=== PATIENT | male | born 1950 | race Two or more races ===

== ENCOUNTER → 2017-01-18 | Outpatient (CLI) | payer MEDICARE ==
[~2017-01-18] MED LIST: ALBU17IN INH; ALBU83IN INH; ASPI325T PO; ATEN50TA2 PO; COUM2.5T17 PO; DILT180C74 PO; DULE100A IN; DULE200A IN; ELIQ5TAB PO; FOLI1TAB4 PO; HYDR-3911 PO; KETOROLAC OD; LISI40TAB PO; METO25TA4 PO; METO25TAB PO; PERC5TAB12 PO; PRED1SUS OD; SOTA80TA PO; SOTA80TA2 PO; SPIR1CAP IN; TYLE325T5 PO; VITA500T53 PO
[2017-01-18 20:23] LABS: MEAN CORPUSCULAR HEMOGLOBIN 33.5 pg (27.0-33.0); MEAN CORPUSCULAR HGB CONC 34.1 g/dl (32.0-36.5); MEAN CORPUSCULAR VOLUME 98.3 fl (80.0-96.0); RED CELL DISTRIBUTION WIDTH 12.6 % (11.5-14.5)
[2017-01-18 20:59] LABS: ALBUMIN 3.8 GM/DL (3.2-5.2); ALBUMIN/GLOBULIN RATIO 1.19 (1.00-1.93); ALKALINE PHOSPHATASE 74 U/L (45-117); ALT/SGPT 17 U/L (12-78); ANION GAP 6 MEQ/L (8-16); AST/SGOT 8 U/L (15-37); BILIRUBIN,TOTAL 0.4 MG/DL (0.2-1.0); BLOOD UREA NITROGEN 16 MG/DL (7-18); CALCIUM LEVEL 8.9 MG/DL (8.8-10.2); CARBON DIOXIDE LEVEL 31 MEQ/L (21-32); CHLORIDE LEVEL 103 MEQ/L (98-107); CREATININE FOR GFR 1.01 MG/DL (0.70-1.30); GLOMERULAR FILTRATION RATE > 60.0 (>49); GLUCOSE, FASTING 112 MG/DL (80-110); MAGNESIUM LEVEL 2.1 MG/DL (1.8-2.4); POTASSIUM SERUM 4.4 MEQ/L (3.5-5.1); SODIUM LEVEL 140 MEQ/L (136-145)
== END ==
LOC: M LRY 15:18
PROVIDERS: ATTEND Internal Medicine Cardiovascular Disease
DX: I50.32 Chronic diastolic (congestive) heart failure (principal); I48.0 Paroxysmal atrial fibrillation; I11.0 Hypertensive heart disease with heart failure; I47.2 Ventricular tachycardia

== ENCOUNTER 2017-02-21 14:37 | Emergency (ER) | payer MEDICARE ==
[~2017-02-21] VITALS: Ht 175.3 cm; Wt 90.0 kg
[~2017-02-21 14:37] MED LIST changes: -ASPI325T PO; -ATEN50TA2 PO; -DULE100A IN; -METO25TA4 PO; -SOTA80TA PO; -SOTA80TA2 PO; -VITA500T53 PO
[2017-02-21] MEDS ORDERED: ELIQ5TAB PO ×2 (14:46→15:02)
[2017-02-21] MEDS ORDERED: METO25TA4 PO (15:02)
[2017-02-21] MEDS ORDERED: HYDR-3911 PO (15:02)
[2017-02-21] MEDS ORDERED: VITA500T53 PO (15:02)
[2017-02-21] MEDS ORDERED: ATEN50TA2 PO (15:02)
[2017-02-21] MEDS ORDERED: ASPI325T PO (15:02)
[2017-02-21] MEDS ORDERED: LISI40TAB PO (15:02)
[2017-02-21] MEDS ORDERED: DILT180C74 PO (15:02)
[2017-02-21] MEDS ORDERED: DULE100A IN (15:02)
[2017-02-21] MEDS ORDERED: SOTA80TA2 PO (15:02)
--- NOTE | 2017-02-21 16:19 | REP ---
CT Head without contrast HISTORY: Blurred vision COMPARISON: None An area of decreased attenuation is present in the left thalamus. This represents an old lacunar infarction. Areas of decreased attenuation are present in the periventricular and subcortical white matter. This represents small-vessel ischemic disease. There is no intraparenchymal hemorrhage, acute infarct, mass or midline shift. The ventricular system and cortical sulci as well as subarachnoid space in the posterior fossa are dilated consistent with mild volume loss. There is no extra cerebral collection. There is no fracture. The visualized sinuses are clear. IMPRESSION: 1. 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 2. Small vessel ischemic disease. 3. Mild volume loss. Signed by Tico Arredondo MD 02/21/2017 04:12 P
[2017-02-21 16:22] LABS: BASO % 0.8 % (0.0-1.0); EOS # 0.1 K/mm3 (0.0-0.50); EOS % 1.9 % (0.0-3.0); LARGE UNSTAINED CELL # 0.1 K/mm3 (0.0-0.4); LARGE UNSTAINED CELL % 2.3 % (0.0-4.0); LYMPH # 1.4 K/mm3 (1.5-4.5); LYMPH % 27.3 % (24.0-44.0); MEAN CORPUSCULAR HEMOGLOBIN 33.3 pg (27.0-33.0); MEAN CORPUSCULAR HGB CONC 34.5 g/dl (32.0-36.5); MEAN CORPUSCULAR VOLUME 96.5 fl (80.0-96.0); MONO # 0.4 K/mm3 (0.0-0.8); MONO % 7.7 % (0.0-5.0); NEUTROPHILS # 2.8 K/mm3 (1.8-7.7); PLATELET COUNT, AUTOMATED 142 k/mm3 (150-450); RED CELL DISTRIBUTION WIDTH 12.7 % (11.5-14.5); WHITE BLOOD COUNT 4.7 K/mm3 (4.0-10.0)
[2017-02-21 16:24] LABS: INR 0.94
--- NOTE | 2017-02-21 16:26 | REP ---
Chest one-view HISTORY: Syncope Comparison: 04/08/2016 The lungs are clear. The heart is normal in size. The pulmonary vasculature is normal in appearance. There is an old fracture of the right clavicle. Impression: No acute disease. Signed by Tico Arredondo MD 02/21/2017 04:17 P
[2017-02-21 16:38] LABS: ANION GAP 5 MEQ/L (8-16); BLOOD UREA NITROGEN 10 MG/DL (7-18); CALCIUM LEVEL 9.3 MG/DL (8.8-10.2); CARBON DIOXIDE LEVEL 31 MEQ/L (21-32); CHLORIDE LEVEL 102 MEQ/L (98-107); GLOMERULAR FILTRATION RATE > 60.0 (>49); GLUCOSE, FASTING 101 MG/DL (80-110); POTASSIUM SERUM 4.3 MEQ/L (3.5-5.1); SODIUM LEVEL 138 MEQ/L (136-145)
[2017-02-21 17:55] VITALS: BP 178/92
--- NOTE | 2017-02-23 09:01 | ECGEPIP ---
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
== END 2017-02-21 17:57 | disposition home or self-care (01) ==
LOC: M ED 14:37 → EDBD 14:37 → M ED 17:57
DX: R55 Syncope and collapse (principal); H53.8 Other visual disturbances; R00.1 Bradycardia, unspecified; I10 Essential (primary) hypertension; F44.9 Dissociative and conversion disorder, unspecified; G47.30 Sleep apnea, unspecified; M19.90 Unspecified osteoarthritis, unspecified site; Z79.899 Other long term (current) drug therapy; Z79.82 Long term (current) use of aspirin; Z79.51 Long term (current) use of inhaled steroids; Z79.01 Long term (current) use of anticoagulants

== ENCOUNTER 2017-02-23 19:31 | Emergency (ER) | payer MEDICARE ==
[~2017-02-23] VITALS: Ht 170.2 cm; Wt 90.0 kg
[~2017-02-23 19:31] MED LIST changes: +ASPI325T PO; +ATEN50TA2 PO; +DULE100A IN; +METO25TA4 PO; +SOTA80TA2 PO; +VITA500T53 PO
[2017-02-23] MEDS ORDERED: SOTA80TA PO (20:02)
[2017-02-23] MEDS ORDERED: ACETAMINOPHEN 325 MG TAB PO ONE (22:00)
[2017-02-23 23:00] VITALS: BP 140/75
== END 2017-02-24 00:08 | disposition home or self-care (01) ==
LOC: M ED 19:31
DX: G44.209 Tension-type headache, unspecified, not intractable (principal); H61.23 Impacted cerumen, bilateral; I10 Essential (primary) hypertension; I25.10 Atherosclerotic heart disease of native coronary artery without angina pectoris; H57.8 Other specified disorders of eye and adnexa; Z79.899 Other long term (current) drug therapy; Z79.51 Long term (current) use of inhaled steroids; Z79.82 Long term (current) use of aspirin; Z79.02 Long term (current) use of antithrombotics/antiplatelets

== ENCOUNTER → 2017-02-24 | Outpatient (CLI) | payer MEDICARE ==
[~2017-02-24] MED LIST changes: +SOTA80TA PO
--- NOTE | 2017-02-24 20:00 | REP ---
MRI BRAIN WITHOUT AND WITH CONTRAST: HISTORY: Strabismus. Comparison CT 02/21/2017 Areas of increased signal intensity on T2-weighted images are present in the left thalamus and right centrum semiovale. These represent old lacunar infarctions. Areas of increased signal intensity on T2-weighted images are present in the periventricular and the subcortical white matter. This represents small vessel ischemic disease. There is no intraparenchymal hemorrhage, acute infarct, mass or midline shift. There is no abnormal enhancement. The ventricular system and cortical sulci as well as subarachnoid space in the posterior fossa are dilated consistent with mild volume loss. There is no extracerebral collection. Mucosal thickening is present in the right maxillary sinus. IMPRESSION: 1. Old left thalamic and right centrum semiovale lacunar infarctions. 2. Small vessel ischemic disease. 3. Mild volume loss. Signed by Tico Arredondo MD 02/28/2017 08:16 A
== END ==
LOC: M RAD 13:55
PROVIDERS: ATTEND Ophthalmology
DX: H49.11 Fourth [trochlear] nerve palsy, right eye (principal); I63.8 Other cerebral infarction; G31.9 Degenerative disease of nervous system, unspecified
CPT/HCPCS: 70553; A9576

== ENCOUNTER → 2017-08-02 | Outpatient (REF) | payer MEDICARE | LOC: M SFHCLERA 15:28 | DX: E78.5 Hyperlipidemia, unspecified (principal); Z53.8 Procedure and treatment not carried out for other reasons ==

== ENCOUNTER → 2017-11-18 | Outpatient (REF) | payer MEDICARE ==
[2017-11-18 18:49] LABS: HEMATOCRIT 42.8 % (42.0-52.0); HEMOGLOBIN 14.1 g/dl (13.5-17.5); MEAN CORPUSCULAR HEMOGLOBIN 33.1 pg (27.0-33.0); MEAN CORPUSCULAR HGB CONC 32.9 g/dl (32.0-36.5); MEAN CORPUSCULAR VOLUME 100.5 fl (80.0-96.0); PLATELET COUNT, AUTOMATED 158 10^3/uL (150-450); RED BLOOD COUNT 4.26 10^6/uL (4.30-6.10); RED CELL DISTRIBUTION WIDTH 12.5 % (11.5-14.5); WHITE BLOOD COUNT 5.1 10^3/uL (4.0-10.0)
[2017-11-18 19:01] LABS: ALBUMIN/GLOBULIN RATIO 1.29 (1.00-1.93); ALKALINE PHOSPHATASE 86 U/L (45-117); ALT/SGPT 20 U/L (12-78); ANION GAP 4 MEQ/L (8-16); AST/SGOT 8 U/L (7-37); BILIRUBIN,TOTAL 0.7 MG/DL (0.2-1.0); BLOOD UREA NITROGEN 12 MG/DL (7-18); CALCIUM LEVEL 8.7 MG/DL (8.8-10.2); CARBON DIOXIDE LEVEL 31 MEQ/L (21-32); CHLORIDE LEVEL 106 MEQ/L (98-107); CHOLESTEROL LEVEL 182 MG/DL (<200); CHOLESTEROL RISK RATIO 2.983 (<5); CREATININE FOR GFR 1.12 MG/DL (0.70-1.30); GLOMERULAR FILTRATION RATE > 60.0 (>49); GLUCOSE, FASTING 148 MG/DL (70-100); HDL CHOLESTEROL 61 MG/DL (>40); LDL CHOLESTEROL 94.2 MG/DL (<100); NON-HDL-C 121 MG/DL; POTASSIUM SERUM 4.3 MEQ/L (3.5-5.1); SODIUM LEVEL 141 MEQ/L (136-145); TOTAL PROTEIN 7.1 GM/DL (6.4-8.2); TRIGLYCERIDES LEVEL 134 MG/DL (<150)
== END ==
LOC: M SFHCLERA 11:37
DX: E78.5 Hyperlipidemia, unspecified (principal)
CPT/HCPCS: 80053

== ENCOUNTER → 2017-12-05 | Outpatient (REF) | payer MEDICARE ==
[2017-12-05 20:14] LABS: ESTIMATED AVERAGE GLUCOSE 123 MG/DL (60-110); HEMOGLOBIN A1c 5.9 %
== END ==
LOC: M SFHCLERA 15:21
DX: R73.09 Other abnormal glucose (principal)
CPT/HCPCS: 83036

== ENCOUNTER 2018-07-29 15:27 | Emergency (ER) | payer MEDICARE ==
[~2018-07-29] VITALS: Ht 170.2 cm; Wt 90.0 kg
[~2018-07-29 15:27] MED LIST changes: +FOLI1TAB11 PO; -FOLI1TAB4 PO; +LISI40TA PO; -PRED1SUS OD; +PRED1SUS2 OD
[2018-07-29] MEDS ORDERED: ACETAMINOPHEN 325 MG TAB PO ONE (17:30)
[2018-07-29] MEDS ORDERED: LIDOCAINE 5% (LIDODERM) PATCH TD ONE (17:30)
[2018-07-29] MEDS ORDERED: LIDO5DIS41 TOP (18:13)
[2018-07-29] MEDS ORDERED: ENDO7.5T11 PO (18:13)
[2018-07-29] MEDS ORDERED: oxyCODONE 5MG TAB PO ONE (18:15)
[2018-07-29 18:19] VITALS: BP 122/77
--- NOTE | 2018-07-29 18:39 | REP ---
Clinical: Right hip pain. Technique: Frontal view of the pelvis with neutral and frog lateral views of the right hip. Findings: Left hip replacement. Moderate to significant pelvic, lumbosacral spine, and right hip degenerative changes. No acute fracture dislocation. Impression: Degenerative changes. No obvious acute fracture or dislocation. Electronically Signed by Jorge Luis Finney MD 07/29/2018 06:31 P
== END 2018-07-29 18:23 | disposition home or self-care (01) ==
LOC: M ED 15:27
DX: M54.31 Sciatica, right side (principal); M16.11 Unilateral primary osteoarthritis, right hip; I51.9 Heart disease, unspecified; I10 Essential (primary) hypertension; J44.9 Chronic obstructive pulmonary disease, unspecified; G47.30 Sleep apnea, unspecified; Z96.642 Presence of left artificial hip joint; Z79.01 Long term (current) use of anticoagulants; Z79.899 Other long term (current) drug therapy

== ENCOUNTER → 2018-08-09 | Outpatient (REF) | payer MEDICARE ==
[~2018-08-09] MED LIST changes: +ENDO7.5T11 PO; +LIDO5DIS41 TOP
[2018-08-09 12:22] LABS: BLOOD UREA NITROGEN 15 MG/DL (7-18); CREATININE FOR GFR 0.82 MG/DL (0.70-1.30); GLOMERULAR FILTRATION RATE > 60.0 (>49)
== END ==
LOC: M LABDRAW1 11:46
PROVIDERS: ATTEND Physician Assistant
DX: M25.551 Pain in right hip (principal)

== ENCOUNTER → 2018-12-11 | Outpatient (REF) | payer MEDICARE ==
[~2018-12-11] MED LIST changes: +ASPI-1 PO; -ASPI325T PO; -DILT180C74 PO; +DILT1CAP3 PO; +LISI40TA52 PO; -LISI40TAB PO; +METO1TAB63 PO; -METO25TAB PO; -SOTA80TA PO; +SOTA80TA32 PO; +VITA500T17 PO; -VITA500T53 PO
[2018-12-11 20:35] LABS: ALBUMIN 3.8 GM/DL (3.2-5.2); ALT/SGPT 25 U/L (12-78); BILIRUBIN,TOTAL 0.5 MG/DL (0.2-1.0); BLOOD UREA NITROGEN 10 MG/DL (7-18); CALCIUM LEVEL 8.8 MG/DL (8.8-10.2); CARBON DIOXIDE LEVEL 32 MEQ/L (21-32); CHLORIDE LEVEL 104 MEQ/L (98-107); CHOLESTEROL LEVEL 170 MG/DL (<200); CHOLESTEROL RISK RATIO 2.931 (<5); CREATININE FOR GFR 1.13 MG/DL (0.70-1.30); GLOMERULAR FILTRATION RATE > 60.0 (>49); GLUCOSE, FASTING 101 MG/DL (70-100); HDL CHOLESTEROL 58 MG/DL (>40); LDL CHOLESTEROL 59 MG/DL (<100); NON-HDL-C 112 MG/DL; POTASSIUM SERUM 4.2 MEQ/L (3.5-5.1); SODIUM LEVEL 141 MEQ/L (136-145); TOTAL PROTEIN 7.1 GM/DL (6.4-8.2); TRIGLYCERIDES LEVEL 267 MG/DL (<150)
[2018-12-11 20:42] LABS: HEMOGLOBIN A1c 6.1 %
[2018-12-11 20:48] LABS: BASO # 0.1 10^3/uL (0.0-0.2); EOS # 0.2 10^3/uL (0.0-0.50); EOS % 2.6 % (0.0-3.0); HEMATOCRIT 44.2 % (42.0-52.0); HEMOGLOBIN 14.6 g/dl (13.5-17.5); LYMPH # 1.7 10^3/uL (1.5-4.5); LYMPH % 28.1 % (24.0-44.0); MEAN CORPUSCULAR HEMOGLOBIN 34.2 pg (27.0-33.0); MEAN CORPUSCULAR VOLUME 103.5 fl (80.0-96.0); MONO # 0.5 10^3/uL (0.0-0.8); MONO % 8.7 % (0.0-5.0); NEUTROPHILS # 3.6 10^3/uL (1.8-7.7); NEUTROPHILS % 59.3 % (36.0-66.0); PLATELET COUNT, AUTOMATED 134 10^3/uL (150-450); RED BLOOD COUNT 4.27 10^6/uL (4.30-6.10); WHITE BLOOD COUNT 6.1 10^3/uL (4.0-10.0)
== END ==
LOC: M SFHCLERA 14:56
PROVIDERS: ATTEND Family Medicine
DX: E78.5 Hyperlipidemia, unspecified (principal); I48.91 Unspecified atrial fibrillation; I10 Essential (primary) hypertension

== ENCOUNTER → 2018-12-22 | Outpatient (CLI) | payer MEDICARE ==
[2018-12-22 19:26] LABS: TOTAL PROTEIN 6.9 GM/DL (6.4-8.2)
[2018-12-24 10:14] LABS: FOLATE 5.4 NG/ML; VITAMIN B12 LEVEL 282 PG/ML
[2018-12-25 14:42] LABS: ALBUMIN % 60.8 % (55.8-66.1); ALPHA-1-GLOBULIN % 4.3 % (2.9-4.9); ALPHA-2-GLOBULINS 0.64 GM/DL (0.42-0.99); ALPHA-2-GLOBULINS % 9.3 % (7.1-11.8); BETA-1-GLOBULINS 0.43 GM/DL (0.28-0.60); BETA-1-GLOBULINS % 6.3 % (4.7-7.2); BETA-2-GLOBULINS 0.34 GM/DL (0.19-0.55); BETA-2-GLOBULINS % 4.9 % (3.2-6.5); GAMMA GLOBULIN % 14.4 % (11.1-18.8); GAMMA GLOBULINS 0.99 GM/DL (0.65-1.58)
== END ==
LOC: M LRY 09:33
PROVIDERS: ATTEND Family Medicine
DX: D75.89 Other specified diseases of blood and blood-forming organs (principal)

== ENCOUNTER → 2019-04-05 | Outpatient (CLI) | payer MEDICARE ==
[2019-04-05 12:44] LABS: ALBUMIN 3.8 GM/DL (3.2-5.2); ALT/SGPT 24 U/L (12-78); BILIRUBIN,TOTAL 0.7 MG/DL (0.2-1.0); BLOOD UREA NITROGEN 13 MG/DL (7-18); CALCIUM LEVEL 8.9 MG/DL (8.8-10.2); CARBON DIOXIDE LEVEL 29 MEQ/L (21-32); CHLORIDE LEVEL 102 MEQ/L (98-107); CHOLESTEROL LEVEL 207 MG/DL (<200); CHOLESTEROL RISK RATIO 4.312 (<5); CREATININE FOR GFR 0.92 MG/DL (0.70-1.30); GLOMERULAR FILTRATION RATE > 60.0 (>49); GLUCOSE, FASTING 105 MG/DL (70-100); HDL CHOLESTEROL 48 MG/DL (>40); LDL CHOLESTEROL 135 MG/DL (<100); NON-HDL-C 159 MG/DL; POTASSIUM SERUM 4.3 MEQ/L (3.5-5.1); SODIUM LEVEL 137 MEQ/L (136-145); TOTAL PROTEIN 6.6 GM/DL (6.4-8.2); TRIGLYCERIDES LEVEL 118 MG/DL (<150)
== END ==
LOC: M LRY 08:39
PROVIDERS: ATTEND Internal Medicine Cardiovascular Disease
DX: I48.91 Unspecified atrial fibrillation (principal); I10 Essential (primary) hypertension; E78.2 Mixed hyperlipidemia

== ENCOUNTER → 2020-05-28 | Outpatient (REF) | payer MEDICARE ==
[2020-05-28 19:30] LABS: ALBUMIN 3.8 GM/DL (3.2-5.2); ALT/SGPT 25 U/L (12-78); BILIRUBIN,TOTAL 0.4 MG/DL (0.2-1.0); BLOOD UREA NITROGEN 11 MG/DL (7-18); CALCIUM LEVEL 8.7 MG/DL (8.8-10.2); CARBON DIOXIDE LEVEL 29 MEQ/L (21-32); CHLORIDE LEVEL 103 MEQ/L (98-107); CHOLESTEROL LEVEL 168 MG/DL (<200); CREATININE FOR GFR 0.88 MG/DL (0.70-1.30); GLOMERULAR FILTRATION RATE > 60.0 (>49); GLUCOSE, FASTING 116 MG/DL (70-100); HDL CHOLESTEROL 52 MG/DL (>40); LDL CHOLESTEROL 95 MG/DL (<100); MAGNESIUM LEVEL 2.2 MG/DL (1.8-2.4); NON-HDL-C 116 MG/DL; NT-PRO BNP 201 PG/ML (<125); POTASSIUM SERUM 5.4 MEQ/L (3.5-5.1); SODIUM LEVEL 136 MEQ/L (136-145); TRIGLYCERIDES LEVEL 106 MG/DL (<150)
[2020-05-30 04:09] LABS: LDL DIRECT 96 mg/dL (0-99)
== END ==
LOC: M LAB REF 16:47
PROVIDERS: ATTEND Internal Medicine Cardiovascular Disease
DX: E78.2 Mixed hyperlipidemia (principal); I50.32 Chronic diastolic (congestive) heart failure; I47.2 Ventricular tachycardia

== ENCOUNTER 2020-12-01 07:50 | Emergency (ER) | payer MEDICARE ==
[~2020-12-01 07:50] MED LIST changes: -LISI40TA PO; +LISI40TA4 PO
[2020-12-01] MEDS ORDERED: NS 1,000 ML IV ONE (08:20)
[2020-12-01 09:08] LABS: BASO # 0.1 10^3/uL (0.0-0.2); BASO % 1.2 % (0.0-1.0); EOS # 0.1 10^3/uL (0.0-0.5); EOS % 2.8 % (0.0-3.0); HEMATOCRIT 39.8 % (42.0-52.0); LYMPH # 1.6 10^3/uL (1.5-5.0); LYMPH % 31.8 % (24.0-44.0); MEAN CORPUSCULAR HEMOGLOBIN 32.7 pg (27.0-33.0); MEAN CORPUSCULAR HGB CONC 32.7 g/dl (32.0-36.5); MONO # 0.4 10^3/uL (0.0-0.8); MONO % 7.1 % (2.0-8.0); NEUTROPHILS # 2.9 10^3/uL (1.5-8.5); NEUTROPHILS % 56.9 % (36.0-66.0); PLATELET COUNT, AUTOMATED 149 10^3/uL (150-450); RED BLOOD COUNT 3.98 10^6/uL (4.30-6.10); WHITE BLOOD COUNT 5.1 10^3/uL (4.0-10.0)
[2020-12-01 09:25] LABS: INR 0.96
[2020-12-01 09:26] LABS: PARTIAL THROMBOPLASTIN TIME 28.8 SECONDS (24.2-38.5)
[2020-12-01 09:30] VITALS: BP 146/78
[2020-12-01 10:04] LABS: ALBUMIN 3.3 GM/DL (3.2-5.2); BILIRUBIN,DIRECT 0.1 MG/DL (0.0-0.2); BILIRUBIN,TOTAL 0.4 MG/DL (0.2-1.0); TOTAL PROTEIN 6.4 GM/DL (6.4-8.2)
[2020-12-01 10:14] LABS: CK-MB VALUE MASS < 1.0 NG/ML (<3.6); CPK CREATINE PHOSPHOKINASE 58 U/L (39-308); MB/CK RELATIVE INDEX 1.72 (< OR =4); TROPONIN I < 0.02 NG/ML (< 0.10)
--- NOTE | 2020-12-01 17:33 | ECGEPIP ---
[facility] - ED Test Date: 2020-12-01 Pat Name: ULCIO RICHARDSON Department: Room: - Gender: Male Layer Out: : 1950 Requested By: CAYETANO Krause PA-C Order Number: [id number] Reading MD: Fannie Antunez Measurements Intervals [place] Rate: 68 P: 69 TN: 178 QRS: 24 QRSD: 66 T: 43 QT: 422 QTc: 448 Interpretive Statements Normal sinus rhythm nonspecific st elevation - clinical correlation ischemia, pericarditis, early r repolarization Electronically Signed on 12-01-2020 17:33:03 EDT by Fannie Antunez
== END 2020-12-01 10:33 | disposition home or self-care (01) ==
LOC: M ED 07:50 → EDBD 07:50 → M ED 10:33
DX: R04.0 Epistaxis (principal); I10 Essential (primary) hypertension; G47.33 Obstructive sleep apnea (adult) (pediatric); Z79.01 Long term (current) use of anticoagulants; Z79.899 Other long term (current) drug therapy

== ENCOUNTER → 2020-12-03 | Outpatient (CLI) | payer MEDICARE ==
[2020-12-03 10:45] LABS: HEMATOCRIT 35.6 % (42.0-52.0); HEMOGLOBIN 11.6 g/dl (13.5-17.5); MEAN CORPUSCULAR HEMOGLOBIN 32.7 pg (27.0-33.0); MEAN CORPUSCULAR HGB CONC 32.6 g/dl (32.0-36.5); MEAN CORPUSCULAR VOLUME 100.3 fl (80.0-96.0); PLATELET COUNT, AUTOMATED 124 10^3/uL (150-450); RED BLOOD COUNT 3.55 10^6/uL (4.30-6.10); WHITE BLOOD COUNT 6.7 10^3/uL (4.0-10.0)
[2020-12-03 11:18] LABS: ALBUMIN 3.5 GM/DL (3.2-5.2); ALT/SGPT 13 U/L (12-78); BILIRUBIN,TOTAL 0.6 MG/DL (0.2-1.0); BLOOD UREA NITROGEN 13 MG/DL (7-18); CALCIUM LEVEL 8.4 MG/DL (8.8-10.2); CARBON DIOXIDE LEVEL 32 MEQ/L (21-32); CHLORIDE LEVEL 102 MEQ/L (98-107); CHOLESTEROL LEVEL 114 MG/DL (<200); CREATININE FOR GFR 0.73 MG/DL (0.70-1.30); GLOMERULAR FILTRATION RATE > 60.0 (>49); GLUCOSE, FASTING 110 MG/DL (70-100); HDL CHOLESTEROL 53 MG/DL (>40); LDL CHOLESTEROL 37 MG/DL (<100); MAGNESIUM LEVEL 2.3 MG/DL (1.8-2.4); NON-HDL-C 61 MG/DL; NT-PRO BNP 379 PG/ML (<125); SODIUM LEVEL 138 MEQ/L (136-145); TOTAL PROTEIN 6.4 GM/DL (6.4-8.2); TRIGLYCERIDES LEVEL 122 MG/DL (<150)
== END ==
LOC: M CARPUL 09:12
PROVIDERS: ATTEND Internal Medicine Cardiovascular Disease
DX: I50.32 Chronic diastolic (congestive) heart failure (principal)

== ENCOUNTER → 2021-01-25 | Outpatient (CLI) | payer MEDICARE ==
--- NOTE | 2021-01-25 10:35 | REP ---
INDICATION: PREOP- LABS AND EKG FIRST. COMPARISON: PA chest, 02/21/2017. TECHNIQUE: Upright PA and lateral images of the chest were obtained. FINDINGS: There is upper lobe predominant emphysema. There is no lobar consolidation or pleural effusion. The heart borders and mediastinum are normal. The upper abdominal bowel gas pattern is normal. There is a healed fracture of the right clavicle. There are no acute bony abnormalities. IMPRESSION: Emphysema. No evidence of acute cardiopulmonary pathology. No significant change. <Electronically signed by Charles Shannon > 01/25/21 [id number]
--- NOTE | 2021-01-25 10:47 | ECGEPIP ---
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
[2021-01-25 10:52] LABS: HEMATOCRIT 42.2 % (42.0-52.0); HEMOGLOBIN 13.7 g/dl (13.5-17.5); MEAN CORPUSCULAR HEMOGLOBIN 32.8 pg (27.0-33.0); MEAN CORPUSCULAR HGB CONC 32.5 g/dl (32.0-36.5); PLATELET COUNT, AUTOMATED 133 10^3/uL (150-450); RED BLOOD COUNT 4.18 10^6/uL (4.30-6.10); WHITE BLOOD COUNT 6.5 10^3/uL (4.0-10.0)
[2021-01-25 11:13] LABS: INR 1.16; PROTHROMBIN TIME 15.2 SECONDS (12.7-14.5)
[2021-01-25 11:23] LABS: ALBUMIN 3.8 GM/DL (3.2-5.2); ALT/SGPT 19 U/L (12-78); BILIRUBIN,TOTAL 0.6 MG/DL (0.2-1.0); BLOOD UREA NITROGEN 10 MG/DL (7-18); CALCIUM LEVEL 8.9 MG/DL (8.8-10.2); CARBON DIOXIDE LEVEL 35 MEQ/L (21-32); CHLORIDE LEVEL 101 MEQ/L (98-107); CREATININE FOR GFR 0.93 MG/DL (0.70-1.30); GLOMERULAR FILTRATION RATE > 60.0 (>49); GLUCOSE, FASTING 110 MG/DL (70-100); POTASSIUM SERUM 4.8 MEQ/L (3.5-5.1); SODIUM LEVEL 136 MEQ/L (136-145); TOTAL PROTEIN 6.9 GM/DL (6.4-8.2)
[2021-01-25 12:02] LABS: ERYTHROCYTE SEDIMENTATION RATE 17 mm/hr (0-20)
== END ==
LOC: M LAB 09:48
PROVIDERS: ATTEND Orthopaedic Surgery
DX: Z01.818 Encounter for other preprocedural examination (principal); I51.9 Heart disease, unspecified; J43.9 Emphysema, unspecified; M16.11 Unilateral primary osteoarthritis, right hip

== ENCOUNTER → 2021-02-16 | Outpatient (REF) | payer MEDICARE ==
[2021-02-16 14:52] LABS: HEMOGLOBIN 11.6 g/dl (13.5-17.5); MEAN CORPUSCULAR HGB CONC 32.2 g/dl (32.0-36.5); MEAN CORPUSCULAR VOLUME 102.3 fl (80.0-96.0); PLATELET COUNT, AUTOMATED 237 10^3/uL (150-450); RED BLOOD COUNT 3.52 10^6/uL (4.30-6.10); WHITE BLOOD COUNT 6.2 10^3/uL (4.0-10.0)
[2021-02-16 15:11] LABS: BLOOD UREA NITROGEN 14 MG/DL (7-18); CALCIUM LEVEL 8.6 MG/DL (8.8-10.2); CARBON DIOXIDE LEVEL 31 MEQ/L (21-32); CHLORIDE LEVEL 100 MEQ/L (98-107); CREATININE FOR GFR 0.84 MG/DL (0.70-1.30); GLOMERULAR FILTRATION RATE > 60.0 (>49); GLUCOSE, FASTING 105 MG/DL (70-100); MAGNESIUM LEVEL 2.4 MG/DL (1.8-2.4); POTASSIUM SERUM 4.3 MEQ/L (3.5-5.1); SODIUM LEVEL 137 MEQ/L (136-145)
== END ==
LOC: M LAB REF 14:22
PROVIDERS: ATTEND Internal Medicine Cardiovascular Disease
DX: I47.2 Ventricular tachycardia (principal); I50.32 Chronic diastolic (congestive) heart failure; I48.0 Paroxysmal atrial fibrillation

== ENCOUNTER 2021-03-17 14:26 | Emergency (ER) | payer MEDICARE ==
[~2021-03-17] VITALS: Ht 170.2 cm; Wt 93.6 kg
[2021-03-17 14:49] LABS: BASO # 0.1 10^3/uL (0.0-0.2); BASO % 0.9 % (0.0-1.0); EOS # 0.1 10^3/uL (0.0-0.5); EOS % 1.6 % (0.0-3.0); HEMATOCRIT 38.2 % (42.0-52.0); HEMOGLOBIN 12.6 g/dl (13.5-17.5); LYMPH # 1.8 10^3/uL (1.5-5.0); MEAN CORPUSCULAR HEMOGLOBIN 32.6 pg (27.0-33.0); MONO # 0.5 10^3/uL (0.0-0.8); MONO % 7.3 % (2.0-8.0); NEUTROPHILS # 4.4 10^3/uL (1.5-8.5); NEUTROPHILS % 63.8 % (36.0-66.0); PLATELET COUNT, AUTOMATED 139 10^3/uL (150-450); RED BLOOD COUNT 3.86 10^6/uL (4.30-6.10); WHITE BLOOD COUNT 6.9 10^3/uL (4.0-10.0)
--- NOTE | 2021-03-17 14:52 | REP ---
INDICATION: CVA - Nursing interventions must not delay CT. COMPARISON: Comparison head CT study February 21, 2017. TECHNIQUE: Helical scanning is acquired. 5 mm axial images were reformatted. Coronal MPR images were generated. FINDINGS: Preliminary digital facing machine operator radiograph is unremarkable. On bone window settings, the bony calvarium is intact. Visualized paranasal sinuses are clear except for a small quantity of fluid in the posterior aspect of the right maxillary sinus. Vascular calcification is observed in the carotid siphons bilaterally. On soft tissue window settings, there is generalized volume loss. There is a small old lacunar infarct in the periventricular white matter of the right frontal lobe and another old lacunar infarct is seen in the left basal ganglia. These are unchanged from the February 21, 2017 study. No evidence of intracranial hemorrhage. No extra-axial fluid collection is seen. No mass or midline shift is observed. small vessel atherosclerotic changes are seen. IMPRESSION: Diffuse atrophy and vascular calcification. Old lacunar infarct. Small vessel atherosclerotic changes. Findings unchanged from the comparison study of February 21, 2017. <Electronically signed by Solitario Jolly > 03/17/21 [id number]
--- NOTE | 2021-03-17 14:54 | REP ---
INDICATION: CVA. COMPARISON: Comparison chest x-ray January 25, 2021. TECHNIQUE: Portable upright AP chest radiograph. FINDINGS: There is a small zone linear density in the left base consistent with platelike atelectasis. A loop recorder is again visible to the left of midline. Monitoring electrodes are seen. The heart is not felt to be enlarged. The pulmonary vasculature is not increased. There is an old healed fracture of the right clavicle. AC joint osteoarthritis is noted bilaterally. There are degenerative changes in the thoracic spine. The pleural angles are sharp. IMPRESSION: Mild platelike atelectasis left base. Loop recorder visible. Otherwise no acute disease. <Electronically signed by Solitario Jolly > 03/17/21 [id number]
[2021-03-17] MEDS ORDERED: XARE20TA PO (15:09)
[2021-03-17 15:19] LABS: CK-MB VALUE MASS < 1.0 NG/ML (<3.6); CPK CREATINE PHOSPHOKINASE 49 U/L (39-308); MB/CK RELATIVE INDEX 2.04 (< OR =4); TROPONIN I < 0.02 NG/ML (< 0.10)
[2021-03-17 16:45] VITALS: BP 146/82
--- NOTE | 2021-03-18 23:58 | ECGEPIP ---
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
== END 2021-03-17 17:00 | disposition home or self-care (01) ==
LOC: M ED 14:26 → EDBD 14:26 → M ED 17:00
DX: R20.2 Paresthesia of skin (principal); I48.91 Unspecified atrial fibrillation; I10 Essential (primary) hypertension; J45.909 Unspecified asthma, uncomplicated

== ENCOUNTER 2021-03-28 19:58 | Inpatient (IN) | payer MEDICARE ==
[~2021-03-28] VITALS: Ht 170.2 cm; Wt 88.7 kg
[~2021-03-28 19:58] MED LIST changes: +XARE20TA PO
--- NOTE | 2021-03-28 20:40 | REPVR ---
PROCEDURE INFORMATION: Exam: CT Head Without Contrast Exam date and time: 03/28/2021 8:25 PM Age: 70 years old Clinical indication: Speech disturbance; Slurred speech; Additional info: Slurred speech, trouble swallowing TECHNIQUE: Imaging protocol: Computed tomography of the head without contrast. Radiation optimization: All CT scans at this facility use at least one of these dose optimization techniques: automated exposure control; mA and/or kV adjustment per patient size (includes targeted exams where dose is matched to clinical indication); or iterative reconstruction. Other technique: STROKE PROTOCOL was implemented. COMPARISON: CT Head without contrast 03/17/2021 2:33 PM FINDINGS: Brain: Moderate to severe volume loss. Decreased attenuation of the supratentorial white matter is likely secondary to chronic microvascular ischemia. No acute intracranial hemorrhage, midline shift or intracranial mass effect. Cerebral ventricles: No hydrocephalus. Paranasal sinuses: Moderate right maxillary sinus disease. Mastoid air cells: Visualized mastoid air cells are well aerated. Bones/joints: Unremarkable. No acute fracture. Soft tissues: Unremarkable. IMPRESSION: No acute intracranial abnormality. ASSESSMENT: ASPECTS ([place] Stroke Program Early CT Score) is 10. Electronically signed by: Kirt London On 03/28/2021 20:39:41 PM
[2021-03-28 20:51] LABS: BASO # 0.1 10^3/uL (0.0-0.2); BASO % 0.9 % (0.0-1.0); EOS # 0.1 10^3/uL (0.0-0.5); HEMATOCRIT 41.2 % (42.0-52.0); HEMOGLOBIN 13.8 g/dl (13.5-17.5); LYMPH # 1.9 10^3/uL (1.5-5.0); LYMPH % 30.3 % (24.0-44.0); MEAN CORPUSCULAR HGB CONC 33.5 g/dl (32.0-36.5); MEAN CORPUSCULAR VOLUME 98.6 fl (80.0-96.0); MONO # 0.5 10^3/uL (0.0-0.8); NEUTROPHILS # 3.7 10^3/uL (1.5-8.5); NEUTROPHILS % 58.5 % (36.0-66.0); PLATELET COUNT, AUTOMATED 122 10^3/uL (150-450); RED BLOOD COUNT 4.18 10^6/uL (4.30-6.10); WHITE BLOOD COUNT 6.4 10^3/uL (4.0-10.0)
--- NOTE | 2021-03-28 20:54 | ECGEPIP ---
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
[2021-03-28 20:57] LABS: INR 1.29; PROTHROMBIN TIME 16.6 SECONDS (12.7-14.5)
--- NOTE | 2021-03-28 21:12 | REP ---
INDICATION: CVA. COMPARISON: March 17, 2021. TECHNIQUE: Portable upright AP chest radiograph. FINDINGS: The lungs are well inflated and free of infiltrate. Pleural angles are sharp. Heart size is normal. Pulmonary vasculature is not increased. There is minimal platelike atelectasis at the left base unchanged. An old healed right clavicle fracture is noted. IMPRESSION: No active disease. <Electronically signed by Solitario Jolly > 03/28/21 [id number]
[2021-03-28] MEDS ORDERED: hydrALAZINE 20MG/ML 1ML VIAL (J0360 PER 20MG) IV STA (21:15)
[2021-03-28 21:17] LABS: BLOOD UREA NITROGEN 15 MG/DL (7-18); CALCIUM LEVEL 8.9 MG/DL (8.8-10.2); CARBON DIOXIDE LEVEL 32 MEQ/L (21-32); CHLORIDE LEVEL 100 MEQ/L (98-107); CK-MB VALUE MASS < 1.0 NG/ML (<3.6); CPK CREATINE PHOSPHOKINASE 59 U/L (39-308); CREATININE FOR GFR 0.84 MG/DL (0.70-1.30); GLOMERULAR FILTRATION RATE > 60.0 (>49); GLUCOSE, FASTING 107 MG/DL (70-100); MB/CK RELATIVE INDEX 1.69 (< OR =4); POTASSIUM SERUM 4.5 MEQ/L (3.5-5.1); SODIUM LEVEL 137 MEQ/L (136-145); TROPONIN I < 0.02 NG/ML (< 0.10)
[2021-03-28] MEDS ORDERED: ROSU20TA5 PO (22:59)
[2021-03-28] MEDS ORDERED: HOME MED LIST COMPLETE! XX SCH (23:00)
[2021-03-28 23:38] LABS: RSV AMPLIFICATION NEGATIVE (NEGATIVE)
[2021-03-28] MEDS ORDERED: ASPIRIN 325 MG TAB PO ONE (23:45)
[2021-03-28] MEDS ORDERED: ASPIRIN 81MG ENTERIC TABLET PO ONE (23:45)
[2021-03-29] VITALS (12 sets, daily range): BP systolic 142–200; BP diastolic 72–98; O2SAT 93
[2021-03-29] MEDS ORDERED: hydrALAZINE 20MG/ML 1ML VIAL (J0360 PER 20MG) IV STA (02:20)
--- NOTE | 2021-03-29 02:41 | REPVR ---
PROCEDURE INFORMATION: Exam: MRA Neck Without Contrast Exam date and time: 03/29/2021 2:00 AM Age: 70 years old Clinical indication: Patient HX: PT states 2 weeks ago felt numbness on both sides of face along with constant feeling of having to clear throat, ; additional info: R/O CVA TECHNIQUE: Imaging protocol: Magnetic resonance angiography of the neck without contrast. COMPARISON: MRA BRAIN WITHOUT 03/29/2021 12:51 AM FINDINGS: Right common carotid artery: No stenosis. No dissection or occlusion. Right internal carotid artery: No stenosis of the extracranial segment. No dissection or occlusion. Right external carotid artery: No stenosis. No dissection or occlusion of the origin. Right vertebral artery: Right vertebral artery is dominant. Left common carotid artery: No stenosis. No dissection or occlusion. Left internal carotid artery: No stenosis of the extracranial segment. No dissection or occlusion. Left external carotid artery: No stenosis. No dissection or occlusion of the origin. Left vertebral artery: No stenosis. No dissection or occlusion. IMPRESSION: No hemodynamically significant stenosis. REFERENCES: NASCET CRITERIA. The degree of internal carotid artery stenosis is based on NASCET criteria. Normal is no stenosis. Mild is less than 50% stenosis. Moderate is 50-69% stenosis. Severe is 70% to 99% stenosis. Total occlusion is no detectable patent lumen. Electronically signed by: Kirt London On 03/29/2021 02:40:54 AM
--- NOTE | 2021-03-29 02:50 | REPVR ---
PROCEDURE INFORMATION: Exam: MR Head Without Contrast Exam date and time: 03/29/2021 2:00 AM Age: 70 years old Clinical indication: Numbness / parasthesia; Bilateral; Patient HX: PT states 2 weeks ago felt numbness on both sides of face along with constant feeling of having to clear throat; Additional info: R/O CVA TECHNIQUE: Imaging protocol: MR of the head without contrast. COMPARISON: CT Head without contrast 03/28/2021 8:17 PM FINDINGS: There is patient motion. Age-related volume loss. Major vascular flow voids at the skull base are preserved. No extra-axial fluid collection. No hydrocephalus. No midline shift or intracranial mass effect. Nonspecific white matter gliosis, probable chronic microvascular ischemia. There are chronic lacunar infarcts involving the bilateral thalami and the right centrum semiovale. There are a few small foci of susceptibility likely secondary to remote microhemorrhage. No diffusion restriction. Moderate right maxillary sinus disease. No mastoid effusion. IMPRESSION: No acute intracranial abnormality. Electronically signed by: Kirt London On 03/29/2021 02:49:32 AM
--- NOTE | 2021-03-29 03:23 | REPVR ---
PROCEDURE INFORMATION: Exam: MRA Head Without Contrast; Arteriography Exam date and time: 03/29/2021 12:51 AM Age: 70 years old Clinical indication: Patient HX: PT states 2 weeks ago felt numbness on both sides of face along with constant feeling of having to clear throat; Additional info: R/O CVA TECHNIQUE: Imaging protocol: Magnetic resonance angiography head without contrast. Exam focused on the arteries. COMPARISON: CT Head without contrast 03/28/2021 8:17 PM FINDINGS: ANTERIOR CIRCULATION: Right internal carotid artery: Intracranial segment is patent with no significant stenosis. No aneurysm. Right middle cerebral artery: No occlusion or significant stenosis. No aneurysm. Right anterior cerebral artery: No occlusion or significant stenosis. No aneurysm. Left internal carotid artery: Intracranial segment is patent with no significant stenosis. No aneurysm. Left middle cerebral artery: No occlusion or significant stenosis. No aneurysm. Left anterior cerebral artery: No occlusion or significant stenosis. No aneurysm. POSTERIOR CIRCULATION: Right vertebral artery: Right vertebral artery is dominant. Left vertebral artery: No occlusion or significant stenosis. No aneurysm. Basilar artery: No occlusion or significant stenosis. No aneurysm. Right posterior cerebral artery: No occlusion or significant stenosis. No aneurysm. Left posterior cerebral artery: No occlusion or significant stenosis. No aneurysm. IMPRESSION: No hemodynamically significant stenosis or large vessel occlusion. Electronically signed by: Kirt London On 03/29/2021 03:22:55 AM
[2021-03-29] MEDS ORDERED: methylPREDNISolone 125MG 2ML VIAL IV ONE (04:05)
[2021-03-29] MEDS: EPINEPHrine INJ 1 MG/ML 1ML AMP IM STA ×2 (04:05→06:03)
[2021-03-29] MEDS ORDERED: HEPARIN SOD (PORCINE) 5000UNITS/ML 1ML VIAL/SYRINGE SC SCH (04:10)
[2021-03-29] MEDS ORDERED: MAALOX 30 ML SUSP *UDC PO PRN (04:10)
[2021-03-29] MEDS ORDERED: MOM 30ML SUSPENSION UDC PO PRN (04:10)
[2021-03-29] MEDS ORDERED: ACETAMINOPHEN TAB 650MG DOSE (2X325MG) PO PRN (04:10)
[2021-03-29] MEDS ORDERED: ISOVUE-370 76% 100ML VIAL As Ordered ONE (04:19)
[2021-03-29] MEDS ORDERED: LABETALOL 100MG/20ML VIAL IV PRN (04:20)
[2021-03-29] MEDS: NS 1,000 ML IV SCH ×3 (04:20→21:12)
--- NOTE | 2021-03-29 04:38 | HPEPDOC ---
[facility] Medical History & Physical Date of Admission Mar 29, 2021 Date of Service: Mar 29, 2021 History and Physical CHIEF COMPLAINT: Slurred speech, trouble swallowing HISTORY OF PRESENT ILLNESS: 70-year-old male with a past medical history of hypertension, atrial fibrillation (on eliquis) status post cardiac ablation, osteoarthritis of the right hip, presented to the ER complaining of trouble swallowing, tongue and lip swelling, and slurred speech with weakness of the L side of face. He has had these symptoms for the past several weeks, with acute exacerbation in the past 24 hours. Upon presentation the patient was out of TPA window. Initial CT head without contrast showed no acute intracranial normality. Of note patient's blood pressure was elevated to 220 systolic. He was given 10 mg of IV hydralazine blood pressure decreased to 150 systolic. Patient was thought to have symptoms related to hypertensive emergency versus acute CVA. MRI?MRA brain and MRA carotids show no abnormalities. Given concern about worsening swelling and slurred speech with tongue swelling, patient was given 125 mg solumedrol and 0.3 mg epinephrine IM for possibility of anaphylaxis to an unknown substance. CT neck w iv contrast was ordered to evaluate airway. PAST MEDICAL HISTORY: HTN Afib on eliquis (hx of cardiac ablation) OAR R hip Restricted airway? PAST SURGICAL HISTORY: Bilateral cataract surgery L hip arthroplasty Cardiac ablation Loop recorder R hip total replacement SOCIAL HISTORY: Patient denies smoking Patient denies etoh use Patient denies illicit drug use ALLERGIES: Please see below. REVIEW OF SYSTEMS: 10 point ROS conducted, relevant findings are noted in HPI HOME MEDICATIONS: Please see below. PHYSICAL EXAMINATION: VITAL SIGNS: please see below General: NAD, comfortable HEENT: PERRLA, EOMI, sclerae clear, no obvious tongue swelling, no tonsillar adenopathy, open posterior airway Neck: supple, normal ROM, no JVD. Respiratory: lungs CTAB, no wheeze, no rales, no crackles CVS: RRR, normal S1, S2, no murmurs Abdo: soft, no masses, no hepatosplenomegaly, BS+, no rebound tenderness Extremities: no edema, pulses 2+ MSK: no joint deformities, normal ROM Neuro: no focal neuro deficits, moving all 4 extremities, CN2-12 intact. Strength 5/5 in all 4 extremities. No nystagmus. Psych: calm, cooperative, AAO x 3 LABORATORY DATA: See below. IMAGING: MRA brain wo contrast (03/28/21): IMPRESSION: No hemodynamically significant stenosis or large vessel occlusion. MRI brain wo contrast (03/28/21): IMPRESSION: No acute intracranial abnormality. MRA carotid arteries wo contrast (03/28/21): IMPRESSION: No hemodynamically significant stenosis. CT head wo contrast (03/28/21): IMPRESSION: No acute intracranial abnormality. CXR (03/28/21): IMPRESSION: No active disease MICROBIOLOGY: Please see below. ASSESSMENT: : 70-year-old male with a past medical history of hypertension, atrial fibrillation (on eliquis) status post cardiac ablation, osteoarthritis of the right hip, presented to the ER complaining of trouble swallowing numbness of the tongue blurred vision and numbness in the left face. Symptoms related to HTN emergency vs acute CVA. CT head negative. Ordered MRI brain, MRA brain and carotid arteries. PLAN: #CVA symptoms 2/2 HTN emergency vs CVA: CT head negative. MRI/MRA brain, MRA carotids Given 81 mg ASA. C/w rosuvastatin. No aggressive BP lowering. Low threshold SBP 160 mmHg. NPO pending speech eval. PT/OT #Tongue swelling/dyspahagi: unknown etiology. PCP notes of restrictive airway? Acute worsening of tongue swelling and dysphagia. gave 125 mg IV solumedrol and epi 0.[address] neck w IV contrast stat. #HTN crisis SBP: BP 222/119 on arrival. Given 10 mg IV hydralazine with expected decrease. BP di from 155 to 190 systolic. BP in 24 hrs is 160 mmHg systolic. Labetalol 10 mg IV oq6h prn ordered for SBP > 180. #Afib: Rate controlled. continue eliquis. Continue Cardizem ER 180 mg daily. C/w Sotalol 80 mg BID. #Hx of asthma: albuterol neb prn. c/w Spiriva. DVT ppx: on eliquis. Dispo: admission expect to last > 2 midnights Vital Signs Vital Signs Date Time Temp Pulse Resp B/P (MAP) Pulse Ox O2 Delivery O2 Flow Rate FiO2 03/29/21 01:48 193/108 (136) 03/29/21 00:15 91 95 Room Air 03/28/21 20:48 96.7 18 Laboratory Data Labs 24H Laboratory Tests 2 10/3/21 20:29: Immature Granulocyte % (Auto) 0.3, Neutrophils (%) (Auto) 58.5, Lymphocytes (%) (Auto) 30.3, Monocytes (%) (Auto) 8.0, Eosinophils (%) (Auto) 2.0, Basophils (%) (Auto) 0.9, Neutrophils # (Auto) 3.7, Lymphocytes # (Auto) 1.9, Monocytes # (Auto) 0.5, Eosinophils # (Auto) 0.1, Basophils # (Auto) 0.1, Nucleated Red Blood Cells % (auto) 0.0, Prothrombin Time 16.6H, Prothromb Time International Ratio 1.29, Activated Partial Thromboplast Time 41.0H, Anion Gap 5L, Glomerular Filtration Rate > 60.0, Calcium Level 8.9, Total Creatine Kinase 59, Creatine Kinase MB < 1.0, Creatine Kinase MB Relative Index 1.69, Troponin I < 0.02 03/28/21 20:37: Bedside Glucose (Misc Panel) 108 03/28/21 22:21: Urine Color YELLOW, Urine Appearance HAZY, Urine pH 5.0, Urine Specific Lucile 1.031, Urine Protein NEGATIVE, Urine Glucose (UA) NEGATIVE, Urine Ketones NEGATIVE, Urine Blood NEGATIVE, Urine Nitrite NEGATIVE, Urine Bilirubin NEGATIVE, Urine Urobilinogen 4.0H, Urine Leukocyte Esterase NEGATIVE, Urine WBC (Auto) 1, Urine RBC (Auto) 3, Urine Hyaline Casts (Auto) 3, Urine Bacteria (Auto) NEGATIVE, Urine Squamous Epithelial Cells 0, Urine Mucus (Auto) LARGE, Urine Sperm (Auto) SMALLH 03/28/21 22:51: Coronavirus (COVID-19)(PCR) NEGATIVE, Influenza Type A (RT-PCR) NEGATIVE, Influenza Type B (RT-PCR) NEGATIVE, Respiratory Syncytial Virus (PCR) NEGATIVE CBC/BMP Laboratory Tests 03/28/21 20:29 Home Medications Scheduled Diltiazem HCl (Diltiazem 24Hr ER) 180 Mg Cap, 180 MG PO DAILY Rivaroxaban (Xarelto) 20 Mg Tablet, 20 MG PO DAILY Rosuvastatin Calcium (Rosuvastatin Calcium) 20 Mg Tablet, 20 MG PO DAILY Sotalol HCl (Sotalol) 80 Mg Tab, 80 MG PO BID Tiotropium [place] (Spiriva) 18 Mcg Cap, 2 PUFFS IN DAILY Allergies Coded Allergies: No Known Drug Allergies (Verified Allergy, Unknown, 12/01/20) ANTONIETA SUMNER MD Mar 29, 2021 04:38
--- NOTE | 2021-03-29 04:41 | REPVR ---
PROCEDURE INFORMATION: Exam: CT Neck With Contrast Exam date and time: 03/29/2021 4:31 AM Age: 70 years old Clinical indication: Painful swallowing; Additional info: Throat swelling, dysphagia TECHNIQUE: Imaging protocol: Computed tomography images of the neck with contrast. Radiation optimization: All CT scans at this facility use at least one of these dose optimization techniques: automated exposure control; mA and/or kV adjustment per patient size (includes targeted exams where dose is matched to clinical indication); or iterative reconstruction. Contrast material: ISO 370; Contrast volume: 75 ml; Contrast route: INTRAVENOUS (IV); COMPARISON: MRA CAROTID WITHOUT CONTRAST 03/29/2021 1:21 AM FINDINGS: Paranasal sinuses: Moderate to severe right maxillary sinus disease including nonspecific fluid. Nasopharynx: Unremarkable. Oropharynx: Unremarkable. No significant tonsillar enlargement. Hypopharynx: Unremarkable. Larynx: Unremarkable. Normal epiglottis. Retropharyngeal space: Unremarkable. Submandibular/Parotid glands: Normal. Glands are normal in size. Thyroid: Normal. No enlarged or calcified nodules. Lymph nodes: Unremarkable. No lymphadenopathy. Trachea: Visualized trachea is unremarkable. Lungs: Unremarkable as visualized. Bones/joints: There are degenerative changes involving the spine. Vasculature: Vascular calcification. Soft tissues: No visible pneumothorax or consolidation. IMPRESSION: No acute abnormality involving the soft tissues of the neck. Electronically signed by: Kirt London On 03/29/2021 04:40:57 AM
[2021-03-29] MEDS: ALBUTEROL SULFATE 2.5 MG/0.5 ML INH NEB SOLN NEB SCH ×4 (07:25→19:40)
[2021-03-29] MEDS: TIOTROPIUM INHALER/CAPSULE (SPIRIVA) INH SCH (07:25)
[2021-03-29] MEDS: SOTALOL HCL 80 MG TAB PO SCH ×2 (08:01→20:47)
[2021-03-29] MEDS: diltiaZEM **CD** 180 MG CAP PO SCH (08:01)
[2021-03-29] MEDS: ROSUVASTATIN 10 MG TAB (CRESTOR) PO SCH (08:01)
[2021-03-29] MEDS ORDERED: RIVAROXABAN 20 MG TAB (XARELTO) PO SCH (09:00)
[2021-03-29 10:45] LABS: CREATININE FOR GFR 0.77 MG/DL (0.70-1.30); GLOMERULAR FILTRATION RATE > 60.0 (>49)
[2021-03-29] MEDS: ENOXAPARIN 100MG/1ML SYRINGE (J1650 PER 10MG) SC SCH ×2 (10:49→21:22)
--- NOTE | 2021-03-29 10:58 | CR.PDOC ---
General Date of Consultation: Mar 29, 2021 Referring Provider: ANTONIETA SUMNER MD Attending Physician: Delfino Lawson MD Consultation REASON FOR CONSULTATION/CHIEF COMPLAINT: Slurred speech trouble swallowing. HISTORY OF PRESENT ILLNESS: El is a 70-year-old gentleman who came into the emergency room last night complaining of trouble swallowing slurred speech. He has had these issues for a couple of weeks. It was worsened over the last 24 hours. He came to the ER with similar complaint 2 weeks ago and was discharged home. He also reports that 8 to 12 months ago he developed numbness and tingling in his face with facial weakness and I drooping this apparently resolved. He had a CT scan done which showed no acute abnormality. He was hypertensive on admission to 220. He had MRI/MRA of the brain and carotids which was normal. There is been no stridor. But he does have a garbled quality to his voice. There is no new medication. No history of trauma. ALLERGIES: Please see below. HOME MEDICATIONS: Please see below. PAST MEDICAL HISTORY: 1. Hypertension . 2. Atrial fibrillation 3. OA R right hip. PAST SURGICAL HISTORY: 1. Left hip arthroplasty bilateral cataract surgery, cardiac ablation, right hip total replacement FAMILY HISTORY: Father: Mother: Siblings: Children: Hereditary Diseases: Unexpected deaths due to medical reasons: SOCIAL HISTORY: Marital status and/or living arrangements: Children: Employment: Tobacco use: None ETOH: None Illicit drug use: None IV drug use: None Other relevant social factors: REVIEW OF SYSTEMS: CONSTITUTIONAL: . HEENT: . CARDIOVASCULAR: . RESPIRATORY: . GENITOURINARY: . MUSCULOSKELETAL: . GASTROINTESTINAL: . SKIN: . NEUROLOGICAL: . PSYCHIATRIC: . ENDOCRINE: . HEMATOLOGIC/LYMPHATIC: . ALLERGIC/IMMUNOLOGIC: . PHYSICAL EXAMINATION: VITAL SIGNS: Please see below. GENERAL APPEARANCE: Alert oriented no apparent distress or stridor voice had a garbled quality. HEENT: Face and scalp were normal facial nerve function was normal examination of the auricles ear canals and tympanic membranes were normal external nose was within normal limits intranasal examination showed no abnormality. Lips teeth and gums are within normal limits no swelling noted tongue was soft not swollen or obstructing. Posterior pharyngeal wall are clear no obvious abnormality palpation of the neck revealed no swelling adenopathy or other abnormality trachea felt midline.. RESPIRATORY: . CARDIOVASCULAR: . ABDOMEN: . EXTREMITIES: . NEUROLOGICAL: . PSYCHIATRIC: . Procedure: We recommended he undergo a fiberoptic laryngoscopy he provided informed consent. The nose was topicalized with Afrin lidocaine solution. The f iberoptic scope was passed through the left nostril nasal cavity was clear nasopharynx was normal tongue base vallecula piriform and postcricoid areas within normal limits supraglottic structures showed no swelling or edema true cords were visible. No swelling or edema noted. Left vocal cord mobility was absent right vocal cord mobility was reduced subglottic area appeared clear. Patient tolerated the procedure well there were no complications LABORATORY DATA: Please see below. ASSESSMENT/PLAN: 1. 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 This is very unlikely related to any kind of mass or lesion given the bilateral nature. Given his history of a exacerbation 2 weeks ago and several months ago this seems neurologic in nature. It would be an unusual presentation for David but he does report some numbness and tingling and eye symptoms in the past. I would recommend a neurology consultation.. Vital Signs/I&O Vital Signs Date Time Temp Pulse Resp B/P (MAP) Pulse Ox O2 Delivery O2 Flow Rate FiO2 03/29/21 08:00 97.9 80 20 175/84 (114) 95 03/29/21 07:40 Room Air I&O- Last 24 Hours up to 6 AM 03/29/21 06:00 Intake Total 250 ml Output Total 0 ml Balance 250 ml Laboratory Data Labs 24H Laboratory Tests 2 03/28/21 20:29: Immature Granulocyte % (Auto) 0.3, Neutrophils (%) (Auto) 58.5, Lymphocytes (%) (Auto) 30.3, Monocytes (%) (Auto) 8.0, Eosinophils (%) (Auto) 2.0, Basophils (%) (Auto) 0.9, Neutrophils # (Auto) 3.7, Lymphocytes # (Auto) 1.9, Monocytes # ( Auto) 0.5, Eosinophils # (Auto) 0.1, Basophils # (Auto) 0.1, Nucleated Red Blood Cells % (auto) 0.0, Prothrombin Time 16.6H, Prothromb Time International Ratio 1.29, Activated Partial Thromboplast Time 41.0H, Anion Gap 5L, Glomerular Filtration Rate > 60.0, Calcium Level 8.9, Total Creatine Kinase 59, Creatine Kinase MB < 1.0, Creatine Kinase MB Relative Index 1.69, Troponin I < 0.02 03/28/21 20:37: Bedside Glucose (Misc Panel) 108 03/28/21 22:21: Urine Color YELLOW, Urine Appearance HAZY, Urine pH 5.0, Urine Specific [place] 1.031, Urine Protein NEGATIVE, Urine Glucose (UA) NEGATIVE, Urine Ketones NEGATIVE, Urine Blood NEGATIVE, Urine Nitrite NEGATIVE, Urine Bilirubin NEGATIVE, Urine Urobilinogen 4.0H, Urine Leukocyte Esterase NEGATIVE, Urine WBC (Auto) 1, Urine RBC (Auto) 3, Urine Hyaline Casts (Auto) 3, Urine Bacteria (Auto) NEGATIVE, Urine Squamous Epithelial Cells 0, Urine Mucus (Auto) LARGE, Urine Sperm (Auto) SMALLH 03/28/21 22:51: Coronavirus (COVID-19)(PCR) NEGATIVE, Influenza Type A (RT-PCR) NEGATIVE, Influenza Type B (RT-PCR) NEGATIVE, Respiratory Syncytial Virus (PCR) NEGATIVE 03/29/21 10:00: Glomerular Filtration Rate > 60.0 CBC/BMP Laboratory Tests 03/28/21 20:29 03/29/21 10:00 Allergies Coded Allergies: No Known Drug Allergies (Verified Allergy, Unknown, 12/01/20) Home Medications Scheduled Diltiazem HCl (Diltiazem 24Hr ER) 180 Mg Cap, 180 MG PO DAILY, (Reported) Rivaroxaban (Xarelto) 20 Mg Tablet, 20 MG PO DAILY, (Reported) Rosuvastatin Calcium (Rosuvastatin Calcium) 20 Mg Tablet, 20 MG PO DAILY, (Reported) Sotalol HCl (Sotalol) 80 Mg Tab, 80 MG PO BID, (Reported) Tiotropium [place] (Spiriva) 18 Mcg Cap, 2 PUFFS IN DAILY, (Reported) Delfino Lawson MD Mar 29, 2021 10:58
[2021-03-29] MEDS: PYRIDOSTIGMINE 60MG TABLET PO SCH ×2 (12:00→16:00)
--- NOTE | 2021-03-29 12:57 | IPNPDOC ---
Subjective Date Seen The patient was seen on 03/29/21. Subjective Chief Complaint/HPI SUBJECTIVE: Patient was seen at bedside rounds this morning. Patient states that he has had left eye muscle weakness about 4 years ago which spontaneously resolved in a few weeks however about 2 weeks ago he is experienced bilateral eye muscle weakness. Patient did not have excessive swelling however his tongue size was enlarged. He denies any dysphagia, facial droop, dizziness, presyncope syncope. Also denies any new foods in his diet or having experienced any recent colds. Denies any fever shaking chills or abdominal discomfort. He does report generalized weakness. OBJECTIVE: PHYSICAL EXAM: VS: Please see below GENERAL: The patient is a well-developed, well-nourished in no apparent distress. AAOx3 NEURO: No focal neurological deficits. Strength 5 out of 5 throughout, sensation 5 out of 5 throughout downgoing toes bilaterally. Cranial 2-12 assessed within normal limits HEENT: Head is normocephalic and atraumatic. Extraocular muscles are intact. Pupils are equal, round, and reactive to light and accommodation. Nares appears normal. Moist mucous membranes. PULM: Clear to auscultation bilaterally. No wheezing, rhonchi or rales appreciated. Enlarged neck circumference, Mallampati 4 CARDIO: Normal S1, S2. no significant murmurs, gallops, rubs or clicks. No signs of peripheral edema ABDOMEN: Obese, soft, nontender, and nondistended. Normal bowel sounds. No significant organomegaly appreciated. EXTREMITIES: No cyanosis, clubbing, rash, lesions. MSK: Range of motion assessed and no limitations IMAGING: Head CT without contrast impression: No acute intracranial abnormalities Chest x-ray impression: No active disease Brain MRI without contrast impression: No acute intracranial abnormality MRI of the brain impression: No hemodynamically significant stenosis or large vessel occlusion Carotid artery MRI impression: No hemodynamically significant stenosis Neck CT with contrast impression: No acute abnormality involving soft tissue of the neck. ASSESSMENT AND PLAN: This is a 70-year-old male who presents to [facility] ER with chief complaint of trouble swallowing and numbness of the tongue blurred vision and numbness of his left face. In the ER his blood pressure was quite elevated with systolic blood pressure of 222 and diastolic blood pressure of 119. He was given a dose of 10 mg IV hydralazine and acute CVA imaging work-up was ordered. Hospitalist team was asked to admit the patient for further management of his care Hypertensive emergency versus acute CVA Work-up for acute CVA with imaging essentially all within normal limits. Patient's neurological exam renal nerves II to XII within normal limits with intact strength 5 out of 5 throughout as well as intact sensation and reflexes with downgoing toes bilaterally. This makes acute CVA lower on my differential. However, patient's initial blood pressure 222/119 with subjective neurological complaints making hypertensive emergency higher on my differential. He is status post 2 doses of IV hydralazine overnight 1 given in the ER 1 given on the floor once admitted. His home medications for blood pressure were also resumed and V labetalol every 6 hours as needed with parameters (to be given if systolic blood pressure greater than 180). Will allow for permissive hypertension with goal of SBP 160 mmHg the next 24 hours. Difficulty swallowing ENT consulted and evaluated patient with bedside fiberoptic laryngoscope and found left vocal cord mobility was absent and right vocal cord mobility was reduced. Subglottic area appeared clear. No swelling or edema in supraglottic structures. ENT recommends neurologic consultation as this may be an unusual presentation for Guillain-Goldstein. N.p.o. Tongue swelling/dysphagia/weakness 3 mg of epinephrine was ordered however according to a.m. signout by admitting physician, epinephrine was never given. Patient does not have any respiratory compromise denies any shortness of breath. Neurology on consultation for dysphagia and vocal cord paralysis. Will order for myasthenia work-up as well as start pyridostigmine 60 mg 3 times daily. PT OT to eval and treat as needed. ST evaluation pending. A. fib rate controlled Patient is on home Xarelto however Eliquis was ordered on admission. We will hold his p.o. anticoagulation as we further evaluate for his dysphagia per neurology consultation. We will start him on therapeutic Lovenox subcu. History of asthma Albuterol nebs as needed continue with home Spiriva anxiety all the detail DVT prophylaxis therapeutic Lovenox Dispo pending clinical improvement GME ATTESTATION My faculty preceptor for this patient encounter was physically present during the encounter and was fully available. All aspects of the patient interview, examination, medical decision making process, and medical care plan development were reviewed and approved by the faculty preceptor. The faculty preceptor is aware and concurs with the plan as stated in the body of this note and will attest to such by his/her cosignature. ATTENDING NOTE I have examined Mr Holman together with the entire resident team, obtained presenting history, performed physical examination and discussed his investigative studies and I agree with the above noted findings, assessment and plan. Briefly, Mr. Holman came in reporting dysphagia, voice changes and slurred speech and initially was thought to be having swelling from an allergic reaction vs. CVA vs. anatomical abnormalities which thus far, studies have not revealed any evidence for edith swelling/edema, CVA or anatomical abnormalities. Instead ENT scoped him and reported vocal cord paralysis with L>R pathology without any swelling or masses noted, leaving us concerned about neurological phenomena with at least the laryngeal nerves. I therefore consulted neurology and and DR. Garcia recommended antiMUSK, acetylcholine R ab and antistriated Ab, and trial of pyridostigmine. He will see the patient this afternoon. VS, I&O, 24H, Fishbone Vital Signs/I&O Vital Signs Date Time Temp Pulse Resp B/P (MAP) Pulse Ox O2 Delivery O2 Flow Rate FiO2 03/29/21 08:00 97.9 80 20 175/84 (114) 95 03/29/21 07:40 Room Air I&O- Last 24 Hours up to 6 AM 03/29/21 06:00 Intake Total 250 ml Output Total 0 ml Balance 250 ml Laboratory Data 24H LABS Laboratory Tests 2 03/28/21 20:29: Immature Granulocyte % (Auto) 0.3, Neutrophils (%) (Auto) 58.5, Lymphocytes (%) (Auto) 30.3, Monocytes (%) (Auto) 8.0, Eosinophils (%) (Auto) 2.0, Basophils (%) (Auto) 0.9, Neutrophils # (Auto) 3.7, Lymphocytes # (Auto) 1.9, Monocytes # (Auto) 0.5, Eosinophils # (Auto) 0.1, Basophils # (Auto) 0.1, Nucleated Red Blood Cells % (auto) 0.0, Prothrombin Time 16.6H, Prothromb Time International Ratio 1.29, Activated Partial Thromboplast Time 41.0H, Anion Gap 5L, Glomerular Filtration Rate > 60.0, Calcium Level 8.9, Total Creatine Kinase 59, Creatine Kinase MB < 1.0, Creatine Kinase MB Relative Index 1.69, Troponin I < 0.02 03/28/21 20:37: Bedside Glucose (Misc Panel) 108 03/28/21 22:21: Urine Color YELLOW, Urine Appearance HAZY, Urine pH 5.0, Urine Specific [place] 1.031, Urine Protein NEGATIVE, Urine Glucose (UA) NEGATIVE, Urine Ketones NEGATIVE, Urine Blood NEGATIVE, Urine Nitrite NEGATIVE, Urine Bilirubin NEGATIVE, Urine Urobilinogen 4.0H, Urine Leukocyte Esterase NEGATIVE, Urine WBC (Auto) 1, Urine RBC (Auto) 3, Urine Hyaline Casts (Auto) 3, Urine Bacteria (Auto) NEGATIVE, Urine Squamous Epithelial Cells 0, Urine Mucus (Auto) LARGE, Urine Sperm (Auto) SMALLH 03/28/21 22:51: Coronavirus (COVID-19)(PCR) NEGATIVE, Influenza Type A (RT-PCR) NEGATIVE, Influenza Type B (RT-PCR) NEGATIVE, Respiratory Syncytial Virus (PCR) NEGATIVE 03/29/21 10:00: Glomerular Filtration Rate > 60.0 CBC/BMP Laboratory Tests 03/28/21 20:29 03/29/21 10:00 Gilbert Madden DO Mar 29, 2021 12:42 CLARISA JOY MD Mar 29, 2021 14:01
[2021-03-29] MEDS ORDERED: methylPREDNISolone 125MG 2ML VIAL IV SCH (13:00)
[2021-03-29] MEDS ORDERED: PYRIDOSTIGMINE INJ 10 MG/2 ML AMP IV SCH (20:00)
[2021-03-30] VITALS: BP 141/67
[2021-03-30] MEDS: PYRIDOSTIGMINE INJ 10 MG/2 ML AMP IV SCH ×5 (00:31→20:04)
[2021-03-30] MEDS: ALBUTEROL SULFATE 2.5 MG/0.5 ML INH NEB SOLN NEB SCH ×7 (00:45→23:31)
[2021-03-30 04:00] VITALS: BP 146/73
[2021-03-30] MEDS: NS 1,000 ML IV SCH (04:37)
[2021-03-30] MEDS: TIOTROPIUM INHALER/CAPSULE (SPIRIVA) INH SCH (07:22)
[2021-03-30 07:32] LABS: HEMATOCRIT 37.2 % (42.0-52.0); HEMOGLOBIN 12.5 g/dl (13.5-17.5); LYMPH % 12.2 % (24.0-44.0); MEAN CORPUSCULAR HEMOGLOBIN 33.3 pg (27.0-33.0); MEAN CORPUSCULAR HGB CONC 33.6 g/dl (32.0-36.5); MEAN CORPUSCULAR VOLUME 99.2 fl (80.0-96.0); MONO # 0.5 10^3/uL (0.0-0.8); NEUTROPHILS # 6.8 10^3/uL (1.5-8.5); NEUTROPHILS % 81.4 % (36.0-66.0); PLATELET COUNT, AUTOMATED 111 10^3/uL (150-450); RED BLOOD COUNT 3.75 10^6/uL (4.30-6.10); WHITE BLOOD COUNT 8.4 10^3/uL (4.0-10.0)
[2021-03-30 07:46] LABS: ALT/SGPT 12 U/L (12-78); BILIRUBIN,TOTAL 0.6 MG/DL (0.2-1.0); BLOOD UREA NITROGEN 13 MG/DL (7-18); CALCIUM LEVEL 8.5 MG/DL (8.8-10.2); CARBON DIOXIDE LEVEL 28 MEQ/L (21-32); CHLORIDE LEVEL 107 MEQ/L (98-107); CREATININE FOR GFR 0.69 MG/DL (0.70-1.30); GLOMERULAR FILTRATION RATE > 60.0 (>49); GLUCOSE, FASTING 113 MG/DL (70-100); POTASSIUM SERUM 4.3 MEQ/L (3.5-5.1); SODIUM LEVEL 140 MEQ/L (136-145); TOTAL PROTEIN 5.9 GM/DL (6.4-8.2)
[2021-03-30 08:00] VITALS: BP 157/89
[2021-03-30] MEDS: ROSUVASTATIN 10 MG TAB (CRESTOR) PO SCH (09:00)
[2021-03-30] MEDS: diltiaZEM **CD** 180 MG CAP PO SCH (09:00)
[2021-03-30] MEDS: SOTALOL HCL 80 MG TAB PO SCH ×2 (09:00→20:04)
[2021-03-30] MEDS: ENOXAPARIN 100MG/1ML SYRINGE (J1650 PER 10MG) SC SCH (09:24)
--- NOTE | 2021-03-30 10:24 | IPNPDOC ---
Subjective Date Seen The patient was seen on 03/30/21. Subjective Chief Complaint/HPI SUBJECTIVE: Patient was seen at bedside rounds this morning. No complaints overnight. Patient is getting ST eval and will advance diet per their recommendations. Patient did not get PO dose of pyridostigmine. IV dosing was given last night. Patient has some eyelid weakness in L, otherwise, denies any headache, dizziness, syncope, pre syncope, facial droop, dysphagia. OBJECTIVE: PHYSICAL EXAM: VS: Please see below GENERAL: The patient is a well-developed, well-nourished in no apparent distress. AAOx3 NEURO: No focal neurological deficits. Strength 5 out of 5 throughout, sensation 5 out of 5 throughout downgoing toes bilaterally. Cranial 2-12 assessed within normal limits HEENT: Head is normocephalic and atraumatic. Extraocular muscles are intact. Pupils are equal, round, and reactive to light and accommodation. Nares appears normal. Moist mucous membranes. PULM: Clear to auscultation bilaterally. No wheezing, rhonchi or rales appreciated. Enlarged neck circumference, Mallampati 4 CARDIO: Normal S1, S2. no significant murmurs, gallops, rubs or clicks. No signs of peripheral edema ABDOMEN: Obese, soft, nontender, and nondistended. Normal bowel sounds. No significant organomegaly appreciated. EXTREMITIES: No cyanosis, clubbing, rash, lesions. MSK: Range of motion assessed and no limitations IMAGING: Head CT without contrast impression: No acute intracranial abnormalities Chest x-ray impression: No active disease Brain MRI without contrast impression: No acute intracranial abnormality MRI of the brain impression: No hemodynamically significant stenosis or large vessel occlusion Carotid artery MRI impression: No hemodynamically significant stenosis Neck CT with contrast impression: No acute abnormality involving soft tissue of the neck. ASSESSMENT AND PLAN: This is a 70-year-old male who presents to [facility] ER with chief complaint of trouble swallowing and numbness of the tongue blurred vision and numbness of his left face. In the ER his blood pressure was quite elevated with systolic blood pressure of 222 and diastolic blood pressure of 119. He was given a dose of 10 mg IV hydralazine and acute CVA imaging work-up was ordered. Hospitalist team was asked to admit the patient for further management of his care Difficulty swallowing ENT consulted and evaluated patient with bedside fiberoptic laryngoscope and found left vocal cord mobility was absent and right vocal cord mobility was reduced. Subglottic area appeared clear. No swelling or edema in supraglottic structures. ENT recommends neurologic consultation as this may be an unusual presentation for GuildaisyinElsyGoldstein. N.p.o. ST pending. will advance diet as per recommendations. Tongue swelling/dysphagia/weakness - possible concern for MG - Patient does not have any respiratory compromise denies any shortness of breath. - Neurology on consultation for dysphagia and vocal cord paralysis. myasthenia workup pending. - PT OT to eval and treat as needed. - Per neuro recs, can titrate IV pyridostigmine to 4mg IV q4h and closely monito r symptoms. will resume pyridostigmine PO once ST evaluation. Hypertensive emergency versus acute CVA Work-up for acute CVA with imaging essentially all within normal limits. Patient's neurological exam renal nerves II to XII within normal limits with intact strength 5 out of 5 throughout as well as intact sensation and reflexes with downgoing toes bilaterally. This makes acute CVA lower on my differential. However, patient's initial blood pressure 222/119 with subjective neurological complaints making hypertensive emergency higher on my differential. He is status post 2 doses of IV hydralazine overnight 1 given in the ER 1 given on the floor once admitted. His home medications for blood pressure were also resumed and V labetalol every 6 hours as needed with parameters (to be given if systolic blood pressure greater than 180). - No longer requires permissive hypertension with goal of SBP 160 mmHg the next 24 hours; as MRI evidence of stroke was negative A. fib rate controlled Patient is on home Xarelto however Eliquis was ordered on admission. We will hold his p.o. anticoagulation as we further evaluate for his dysphagia per neurology consultation. We will start him on therapeutic Lovenox subcu. - Will transition to oral anticoagulation once tolerating PO History of asthma Albuterol nebs as needed continue with home Spiriva anxiety all the detail DVT prophylaxis therapeutic Lovenox Dispo pending clinical improvement VS, I&O, 24H, Fishbone Vital Signs/I&O Vital Signs Date Time Temp Pulse Resp B/P (MAP) Pulse Ox O2 Delivery O2 Flow Rate FiO2 03/30/21 08:00 98.0 96 20 157/89 (111) 93 Room Air 03/30/21 04:00 2.0 I&O- Last 24 Hours up to 6 AM 03/30/21 06:00 Intake Total 2700 ml Output Total 1000 ml Balance 1700 ml Laboratory Data 24H LABS Laboratory Tests 2 03/29/21 17:34: 03/30/21 07:10: Immature Granulocyte % (Auto) 0.4, Neutrophils (%) (Auto) 81.4H, Lymphocytes (%) (Auto) 12.2L, Monocytes (%) (Auto) 6.0, Eosinophils (%) (Auto) 0.0, Basophils (%) (Auto) 0.0, Neutrophils # (Auto) 6.8, Lymphocytes # (Auto) 1.0L, Monocytes # (Auto) 0.5, Eosinophils # (Auto) 0.0, Basophils # (Auto) 0.0, Nucleated Red Blood Cells % (auto) 0.0, Anion Gap 5L, Glomerular Filtration Rate > 60.0, Calcium Level 8.5L, Magnesium Level 2.0, Total Bilirubin 0.6, Aspartate Amino Transf (AST/SGOT) 5L, Alanine Aminotransferase (ALT/SGPT) 12, Alkaline Phosphatase 67, Total Protein 5.9L, Albumin 3.0L, Albumin/Globulin Ratio 1.0 CBC/BMP Laboratory Tests 03/30/21 07:10 GME ATTESTATION GME ATTESTATION My faculty preceptor for this patient encounter was physically present during the encounter and was fully available. All aspects of the patient interview, examination, medical decision making process, and medical care plan development were reviewed and approved by the faculty preceptor. The faculty preceptor is aware and concurs with the plan as stated in the body of this note and will attest to such by his/her cosignature. ATTENDING NOTE I, Sakina Bloom, have independently examined this patient and performed my own physical exam, as well as reviewed the documentation and edited where necessary. I have discussed in detail with the resident / student the findings and plan of treatment as documented by the resident / student and edited their note. I agree with their findings and treatment plan and have edited their documentation. I will continue to follow the patient during this hospital stay. Gilbert Madden DO Mar 30, 2021 10:16 SAKINA BLOOM MD Mar 30, 2021 14:33
[2021-03-30] MEDS ORDERED: PYRIDOSTIGMINE INJ 10 MG/2 ML AMP IV SCH (12:00)
[2021-03-30] MEDS ORDERED: PYRIDOSTIGMINE 60MG TABLET PO SCH (16:00)
[2021-03-30] MEDS ORDERED: RIVAROXABAN 20 MG TAB (XARELTO) PO SCH (18:00)
--- NOTE | 2021-03-30 20:14 | CR ---
NEUROLOGY CONSULTATION DATE: 03/29/2021 REASON FOR CONSULTATION: Slurred speech, trouble swallowing. HISTORY OF PRESENT ILLNESS: The patient is a 70-year-old right handed male with a past medical history significant for atrial fibrillation, on Eliquis, status post cardiac ablation, history of difficulty with ptosis, diplopia, dysphagia, dysarthria. He states that in the summertime he started having difficulty with choking on foods occasionally. In the last few weeks he started feeling that he could not swallow so well. A few years ago he was told that he has some intermittent diplopia and some droopy eyelids. The patient is noted on physical exam to have fatigable weakness of the eyelids and diplopia. The patient has more dysarthria the more he talks. Workup for myasthenia gravis has been sent off including anti-striational antibody, anti-musk antibody and acetylcholine receptor antibodies. Due to the patient not being able to take oral medications and unable to take Pyridostigmine 60 mg three times a day, the patient was asked to switch to IV Pyridostigmine and was given 2 mg which did not make a difference, with instructions to raise it gradually to 3 and then possibly 4 mg every 4 hours. MRI of the brain ruled out any acute stroke. The patient originally presented with hypertensive emergency type symptoms. His chief complaint also included subjective feeling that his tongue was swollen, numbness of the tongue and face. He has small vessel ischemic disease of the brain but no acute stroke. He denies any weakness in the arms and legs. REVIEW OF SYSTEMS: A 14-point review of systems obtained and is negative except as per HPI. PAST MEDICAL HISTORY: The patient's past medical history is significant for: 1. Atrial fibrillation, on Eliquis. 2. Hypertension. 3. Arthritis of right hip. PAST SURGICAL HISTORY: The patient's past surgical history is significant for: 1. Bilateral cataract surgery. 2. Left hip arthroplasty. 3. Cardiac ablation. 4. Loop recorder. 5. Right hip total replacement. FAMILY HISTORY: Noncontributory. SOCIAL HISTORY: The patient denies use of any tobacco, alcohol or illicit drugs. ALLERGIES: No known drug allergies. HOME MEDICATIONS: 1. Diltiazem 180 mg 24-hour extended release daily. 2. Xarelto 20 mg daily. 3. Rosuvastatin 20 mg daily. 4. Sotalol 80 mg twice daily. 5. Spiriva 18 mcg 2 puffs daily. PHYSICAL EXAMINATION: VITAL SIGNS: Blood pressure is 175/84, pulse rate 80, respiratory rate is 20, oxygenation is 95% on room air, temperature is 97.9 degrees Fahrenheit. Repeat blood pressure 150/78. GENERAL APPEARANCE: The patient is oriented to person, place and time. NEUROLOGICAL: Speech, language, comprehension and repetition are intact with the exception of dysarthria. The patient has fatigable ptosis. He has fatigable diplopia at end gaze. There is no facial asymmetry. Tongue is midline. The patient has weakness in his tongue muscles. He has no neck flexion weakness. He has weakness in his left deltoid, 4/5 in left biceps, 4/5 triceps on the left is 5 minus. Iliopsoas are bilaterally 5 minus. Quadriceps 2 less anterior, 5/5. Deep tendon reflexes are 2 throughout, reduced interpreted the ankles. Babinski signs are absent. Sensory is intact to light touch in all four extremities. There is no gross ataxia or dysmetria. Gait was deferred. ASSESSMENT: 1. A 68-year-old male with progressive symptoms of dysarthria, dysphagia, ptosis, diplopia, high suspicion for neuromuscular junction disorder. PLAN: 1. Follow up lab results for acetyl choline receptor antibody, anti-musk antibody, anti-striational antibody. 2. Consider CT chest to rule out thymoma. 3. Continue Pyridostigmine with incremental dosage increase from 3 mg IV q. 4 hours Pyridostigmine to 4 mg IV q. 4 hours Pyridostigmine standing dosages. 4. Consider IVIG endoplasma exchange as another therapeutic option. 5. Continue support care. Optimize blood pressure. No MR evidence to suggest acute stroke at this time. MTDD
[2021-03-31] VITALS: BP 142/72
[2021-03-31] MEDS: PYRIDOSTIGMINE INJ 10 MG/2 ML AMP IV SCH ×7 (00:10→23:39)
[2021-03-31 03:31] VITALS: BP 164/78
[2021-03-31] MEDS: ALBUTEROL SULFATE 2.5 MG/0.5 ML INH NEB SOLN NEB SCH ×6 (04:00→23:35)
[2021-03-31 07:29] VITALS: BP 160/75
[2021-03-31] MEDS: TIOTROPIUM INHALER/CAPSULE (SPIRIVA) INH SCH (07:33)
[2021-03-31] MEDS: ROSUVASTATIN 10 MG TAB (CRESTOR) PO SCH (09:11)
[2021-03-31] MEDS: SOTALOL HCL 80 MG TAB PO SCH ×2 (09:11→20:01)
[2021-03-31] MEDS: diltiaZEM **CD** 180 MG CAP PO SCH (09:12)
[2021-03-31] MEDS: predniSONE 20 MG TAB PO SCH (09:55)
--- NOTE | 2021-03-31 10:58 | IPNPDOC ---
Subjective Date Seen The patient was seen on 03/31/21. Subjective Chief Complaint/HPI SUBJECTIVE: Seen at bedside this morning. Patient states that he was able to tolerate pured diet yesterday morning however by the afternoon he was getting more progressive dysphagia and this morning he cannot eat any of his breakfast due to heaviness his lips and tongue. He is also noticing that today he is having more weakness in his eyelids bilaterally. He is noted to be more dysarthric when he talks today. Due to his progressive dysphagia since yesterday afternoon his pyridostigmine was cut Burditt from p.o. to IV. I will switch his Xarelto to therapeutic Lovenox today. OBJECTIVE: PHYSICAL EXAM: VS: Please see below GENERAL: The patient is a well-developed, well-nourished in no apparent distress. AAOx3 NEURO: No focal neurological deficits. Strength 4 out of 4 throughout, sensation 5 out of 5 throughout downgoing toes bilaterally. eyelid droop bi laterally L >R HEENT: Head is normocephalic and atraumatic. Extraocular muscles are intact. Pupils are equal, round, and reactive to light and accommodation. Nares appears normal. Moist mucous membranes. PULM: Clear to auscultation bilaterally. No wheezing, rhonchi or rales appreciated. Enlarged neck circumference, Mallampati 4 CARDIO: Normal S1, S2. no significant murmurs, gallops, rubs or clicks. No signs of peripheral edema ABDOMEN: Obese, soft, nontender, and nondistended. Normal bowel sounds. No sign ificant organomegaly appreciated. EXTREMITIES: No cyanosis, clubbing, rash, lesions. MSK: Range of motion assessed and no limitations IMAGING: Head CT without contrast impression: No acute intracranial abnormalities Chest x-ray impression: No active disease Brain MRI without contrast impression: No acute intracranial abnormality MRI of the brain impression: No hemodynamically significant stenosis or large vessel occlusion Carotid artery MRI impression: No hemodynamically significant stenosis Neck CT with contrast impression: No acute abnormality involving soft tissue of the neck. CT chest w/o ctx: Pending ASSESSMENT AND PLAN: This is a 70-year-old male who presents to [facility] ER with chief complaint of trouble swallowing and numbness of the tongue blurred vision and numbness of his left face. In the ER his blood pressure was quite elevated with systolic blood pressure of 222 and diastolic blood pressure of 119. He was given a dose of 10 mg IV hydralazine and acute CVA imaging work-up was ordered. Hospitalist team was asked to admit the patient for further management of his care Tongue and lip heaviness/dysphagia/weakness - possible concern for MG ENT consulted and evaluated patient with bedside fiberoptic laryngoscope and found left vocal cord mobility was absent and right vocal cord mobility was reduced. Patient dysphagia improved and per ST eval, he was able to transition to puree diet which he tolerated yesterday am, until he had more progressive dysphagia yesterday afternoon. We changed back his PO meds to IV. Neurology on consultation- recommends increasing pyridostigmine to 5mg IV q4h and starting prednisone 20mg PO daily and slowly increase dose to 30mg PO in 2-3 days. Also recommends IVIG with his worsening of symptoms. Will start IVIG infusion (weight base). - Will get CT neck / Chest to evaluate for thymoma Patient does not have any respiratory compromise denies any shortness of breath. Pending myasthenia markers workup c/w PT OT to eval and treat as needed. Hypertensive emergency versus acute CVA Work-up for acute CVA with imaging essentially all within normal limits. Patient's neurological within normal limits; however, more weakness with 4/5 strength throughout. Downgoing toes bilaterally. This makes acute CVA lower on my differential. However, patient's initial blood pressure 222/119 with subjective neurological complaints making hypertensive emergency higher on my differential. He is status post 2 doses of IV hydralazine overnight 1 given in the ER 1 given on the floor once admitted. His home medications for blood pressure were also resumed and V labetalol every 6 hours as needed with parameters (to be given if systolic blood pressure greater than 180). - No longer requires permissive hypertension with goal of SBP 160 mmHg the next 24 hours; as MRI evidence of stroke was negative. will continue to monitor bp closely. A. fib rate controlled Patient is on home Xarelto however Eliquis was ordered on admission. We will hold his p.o. anticoagulation as we further evaluate for his dysphagia per neurology consultation. will switch back to theraputic lovenox as patient can't tolerate po today History of asthma Albuterol nebs as needed continue with home Spiriva anxiety all the detail DVT prophylaxis - therapeutic Lovenox Dispo: - pending clinical improvement VS, I&O, 24H, Fishbone Vital Signs/I&O Vital Signs Date Time Temp Pulse Resp B/P (MAP) Pulse Ox O2 Delivery O2 Flow Rate FiO2 03/31/21 07:29 97.8 76 18 160/75 (103) 92 Room Air 03/30/21 04:00 2.0 I&O- Last 24 Hours up to 6 AM 03/31/21 06:00 Intake Total 1260 ml Output Total 1400 ml Balance -140 ml GME ATTESTATION GME ATTESTATION My faculty preceptor for this patient encounter was physically present during the encounter and was fully available. All aspects of the patient interview, examination, medical decision making process, and medical care plan development were reviewed and approved by the faculty preceptor. The faculty preceptor is aware and concurs with the plan as stated in the body of this note and will attest to such by his/her cosignature. ATTENDING NOTE I, Sakina Bloom, have independently examined this patient and performed my own physical exam, as well as reviewed the documentation and edited where necessary with the resident. For medical students we have performed the physical exam together and discussed medical decision making and I have verified the history. I have discussed in detail with the resident / student the findings and plan of treatment as documented by the resident / student and edited their note. I agree with their findings and treatment plan and have edited their documentation. I will continue to follow the patient during this hospital stay. Gilbert Madden DO Mar 31, 2021 10:36 SAKINA BLOOM MD Mar 31, 2021 13:17
--- NOTE | 2021-03-31 11:54 | REP ---
INDICATION: fatigue, r/o thymoma. COMPARISON: None. TECHNIQUE: Helical scanning is acquired. 3 mm axial images are generated. Coronal and sagittal MPR and coronal MIP images are generated. 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 Axial 3 mm slices show no evidence of anterior mediastinal mass. There is no evidence to suggest thymic neoplasm or cyst. The thyroid lobes are small and symmetric just above the thoracic inlet. No supraclavicular or axillary mass or adenopathy is observed. No mediastinal adenopathy is seen. No hilar adenopathy is appreciated. There is coronary artery vascular calcification along the distribution of the left coronary artery. There is no evidence of pleural or pericardial effusion. There is subsegmental atelectatic change in the lower lobes bilaterally. There are several abnormal opacities in the lung martinez. First there is a somewhat nodular infiltrate in the perihilar region of the right upper lobe somewhat medially. there is a 7 mm solid nodule within this infiltrate displayed on page 45 of 119 in series 201 of today's study. This merits follow-up. In addition, there is a peribronchovascular somewhat nodular infiltrate in the left lower lobe which contains a solid appearing 1.1 cm nodular component. There is some surrounding ground-glass opacity and both of these areas may well represent inflammatory pneumonia. Follow-up chest CT is recommended however. No other significant lung nodule is seen. No endobronchial disease is appreciated. IMPRESSION: Somewhat nodular infiltrates are present bilaterally, right upper lobe and left lower lobe most compatible with pneumonitis or inflammatory lung disease. Three to six-month follow-up CT is recommended however. There is no evidence of mediastinal mass to suggest thymoma or adenopathy <Electronically signed by Solitario Jolly > 03/31/21 [id number]
[2021-03-31 12:00] VITALS: BP 132/66
[2021-03-31] MEDS: IMMUNE GLOBULIN 10% 5 GM in IV 1 EA IV SCH (15:02)
[2021-03-31] MEDS: IMMUNE GLOBULIN 10% 20 GM in IV 1 EA IV SCH (15:03)
[2021-03-31] MEDS: IMMUNE GLOBULIN 10% 10 GM in IV 1 EA IV SCH (15:04)
[2021-03-31 16:00] VITALS: BP 127/70
[2021-03-31] MEDS: ENOXAPARIN 100MG/1ML SYRINGE (J1650 PER 10MG) SC SCH (17:00)
[2021-03-31 20:00] VITALS: BP 117/62
[2021-04-01] VITALS (13 sets, daily range): BP systolic 110–143; BP diastolic 53–80
[2021-04-01] MEDS: PYRIDOSTIGMINE INJ 10 MG/2 ML AMP IV SCH ×5 (04:03→20:26)
[2021-04-01] MEDS: ALBUTEROL SULFATE 2.5 MG/0.5 ML INH NEB SOLN NEB SCH ×6 (04:11→23:36)
[2021-04-01] MEDS: ENOXAPARIN 100MG/1ML SYRINGE (J1650 PER 10MG) SC SCH ×2 (05:16→17:25)
[2021-04-01 06:31] LABS: HEMATOCRIT 36.2 % (42.0-52.0); HEMOGLOBIN 12.1 g/dl (13.5-17.5); MEAN CORPUSCULAR HEMOGLOBIN 33.1 pg (27.0-33.0); MEAN CORPUSCULAR HGB CONC 33.4 g/dl (32.0-36.5); MEAN CORPUSCULAR VOLUME 98.9 fl (80.0-96.0); PLATELET COUNT, AUTOMATED 101 10^3/uL (150-450); RED BLOOD COUNT 3.66 10^6/uL (4.30-6.10); WHITE BLOOD COUNT 7.2 10^3/uL (4.0-10.0)
[2021-04-01] MEDS: TIOTROPIUM INHALER/CAPSULE (SPIRIVA) INH SCH (08:05)
[2021-04-01] MEDS: predniSONE 20 MG TAB PO SCH (08:19)
[2021-04-01] MEDS: ROSUVASTATIN 10 MG TAB (CRESTOR) PO SCH (08:19)
[2021-04-01] MEDS: SOTALOL HCL 80 MG TAB PO SCH ×2 (08:20→20:26)
[2021-04-01] MEDS: diltiaZEM **CD** 180 MG CAP PO SCH (08:20)
--- NOTE | 2021-04-01 10:49 | IPNPDOC ---
Subjective Date Seen The patient was seen on 04/01/21. Subjective Chief Complaint/HPI SUBJECTIVE: Seen at bedside this morning. Patient states that he was able to tolerate pured diet and states that his lips and tongue feel less heavy this morning; however he states that his eye lid is drooping, more prominent in the L side than R side. Speech seems to be a bit better than yesterday. Denies any blurry vision, or vision loss, headache, dizziness, dry mouth, constipation, trouble urinating. OBJECTIVE: PHYSICAL EXAM: VS: Please see below GENERAL: The patient is a well-developed, well-nourished in no apparent distress. AAOx3 NEURO: No focal neurological deficits. Strength 4 out of 4 throughout, sensation 5 out of 5 throughout downgoing toes bilaterally. eyelid droop bilaterally L >R HEENT: Head is normocephalic and atraumatic. Extraocular muscles are intact. Prominent L eye lip droop. R side slight droop. Pupils are equal, round, and reactive to light and accommodation. Nares appears normal. Moist mucous membrane s. PULM: Clear to auscultation bilaterally. No wheezing, rhonchi or rales appreciated. Enlarged neck circumference, Mallampati 4 CARDIO: Normal S1, S2. no significant murmurs, gallops, rubs or clicks. No signs of peripheral edema ABDOMEN: Obese, soft, nontender, and nondistended. Normal bowel sounds. No significant organomegaly appreciated. EXTREMITIES: No cyanosis, clubbing, rash, lesions. MSK: Range of motion assessed and no limitations IMAGING: Head CT without contrast impression: No acute intracranial abnormalities Chest x-ray impression: No active disease Brain MRI without contrast impression: No acute intracranial abnormality MRI of the brain impression: No hemodynamically significant stenosis or large vessel occlusion Carotid artery MRI impression: No hemodynamically significant stenosis Neck CT with contrast impression: No acute abnormality involving soft tissue of the neck. CT chest w/o ctx impression: Somewhat nodular infiltrates are present bilaterally, right upper lobe and left lower lobe most compatible with pneumonitis or inflammatory lung disease. Three to six-month follow-up CT is recommended however. There is no evidence of mediastinal mass to suggest thymoma or adenopathy ASSESSMENT AND PLAN: This is a 70-year-old male who presents to [facility] ER with chief complaint of trouble swallowing and numbness of the tongue blurred vision and numbness of his left face. In the ER his blood pressure was quite elevated with systolic blood pressure of 222 and diastolic blood pressure of 119. He was given a dose of 10 mg IV hydralazine and acute CVA imaging work-up was ordered. Hospitalist team was asked to admit the patient for further management of his care Tongue and lip heaviness/dysphagia/weakness - possible concern for MG ENT consulted and evaluated patient with bedside fiberoptic laryngoscope and found left vocal cord mobility was absent and right vocal cord mobility was reduced. Patient dysphagia improved and per ST ev, he was able to transition to puree diet which he tolerated yesterday am, until he had more progressive dysphagia yesterday afternoon. We changed back his PO meds to IV. Neurology on consultation- recommends increasing pyridostigmine to 5mg IV q4h and starting prednisone 20mg PO daily and slowly increase dose to 30mg PO in 2-3 days. Also recommends IVIG with his worsening of symptoms. Will start IVIG infusion (weight base). CT neck did not show thymoma or signs of adenopathy Patient does not have any respiratory compromise denies any shortness of breath. Pending myasthenia markers workup c/w PT OT ST to eval and treat as needed. Will advance diet per rec. s/p Hypertensive emergency versus acute CVA Work-up for acute CVA with imaging essentially all within normal limits. Patient's neurological within normal limits; however, more weakness with 4/5 strength throughout. Downgoing toes bilaterally. This makes acute CVA lower on my differential. However, patient's initial blood pressure 222/119 with subjective neurological complaints making hypertensive emergency higher on my differential. He is stat us post 2 doses of IV hydralazine overnight 1 given in the ER 1 given on the floor once admitted. His home medications for blood pressure were also resumed and V labetalol every 6 hours as needed with parameters (to be given if systolic blood pressure greater than 180). No longer requires permissive hypertension with goal of SBP 160 mmHg the next 24 hours; as MRI evidence of stroke was negative. will continue to monitor bp closely. A. fib rate controlled Patient is on home Xarelto however Eliquis was ordered on admission. We will hold his p.o. anticoagulation as we further evaluate for his dysphagia per neurology consultation. c.w lovenox until further advancement in diet History of asthma Albuterol nebs as needed continue with home Spiriva anxiety all the detail Work related lung injury CT chest shows nodular infiltrates are present bilaterally, right upper lobe and left lower lobe most compatible with pneumonitis or inflammatory lung disease. 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 Patient follow with Dr. Burdick outpt for pulmonary to continue follow imaging. DVT prophylaxis therapeutic Lovenox VS, I&O, 24H, Fishbone Vital Signs/I&O Vital Signs Date Time Temp Pulse Resp B/P (MAP) Pulse Ox O2 Delivery O2 Flow Rate FiO2 04/01/21 07:18 98.1 68 20 143/67 (92) 90 Room Air 03/30/21 04:00 2.0 I&O- Last 24 Hours up to 6 AM 04/01/21 06:00 Intake Total 1800 ml Output Total 875 ml Balance 925 ml Laboratory Data 24H LABS Laboratory Tests 2 04/01/21 05:14: Nucleated Red Blood Cells % (auto) 0.0 CBC/BMP Laboratory Tests 04/01/21 05:14 GME ATTESTATION GME ATTESTATION My faculty preceptor for this patient encounter was physically present during the encounter and was fully available. All aspects of the patient interview, examination, medical decision making process, and medical care plan development were reviewed and approved by the faculty preceptor. The faculty preceptor is aware and concurs with the plan as stated in the body of this note and will attest to such by his/her cosignature. ATTENDING NOTE I, Sakina Bloom, have independently examined this patient and performed my own physical exam, as well as reviewed the documentation and edited where necessary with the resident. For medical students we have performed the physical exam together and discussed medical decision making and I have verified the history. I have discussed in detail with the resident / student the findings and plan of treatment as documented by the resident / student and edited their note. I agree with their findings and treatment plan and have edited their documentation. I will continue to follow the patient during this hospital stay. Gilbert Madden DO Apr 01, 2021 10:18 SAKINA BLOOM MD Apr 01, 2021 12:36
[2021-04-01 11:07] LABS: BASO % 0.5 % (0.0-1.0); EOS % 0.3 % (0.0-3.0); LYMPH # 2.1 10^3/uL (1.5-5.0); LYMPH % 28.8 % (24.0-44.0); MONO # 0.6 10^3/uL (0.0-0.8); MONO % 7.8 % (2.0-8.0); NEUTROPHILS # 4.6 10^3/uL (1.5-8.5); NEUTROPHILS % 62.3 % (36.0-66.0)
[2021-04-01 11:07] LABS: ALT/SGPT 14 U/L (12-78); BILIRUBIN,TOTAL 0.7 MG/DL (0.2-1.0); BLOOD UREA NITROGEN 14 MG/DL (7-18); CALCIUM LEVEL 8.5 MG/DL (8.8-10.2); CARBON DIOXIDE LEVEL 31 MEQ/L (21-32); CHLORIDE LEVEL 101 MEQ/L (98-107); GLOMERULAR FILTRATION RATE > 60.0 (>49); GLUCOSE, FASTING 82 MG/DL (70-100); POTASSIUM SERUM 3.8 MEQ/L (3.5-5.1); SODIUM LEVEL 138 MEQ/L (136-145); TOTAL PROTEIN 6.5 GM/DL (6.4-8.2)
[2021-04-01] MEDS: IMMUNE GLOBULIN 10% 5 GM in IV 1 EA IV SCH (13:06)
[2021-04-01] MEDS: IMMUNE GLOBULIN 10% 10 GM in IV 1 EA IV SCH (14:58)
[2021-04-01] MEDS: IMMUNE GLOBULIN 10% 20 GM in IV 1 EA IV SCH (17:20)
[2021-04-01] MEDS ORDERED: POLYVINYL ALCOHOL OPHTH SOLN 15 ML(LIQUITEARS) OU PRN (17:45)
[2021-04-02] VITALS (15 sets, daily range): BP systolic 127–163; BP diastolic 62–85
[2021-04-02] MEDS: PYRIDOSTIGMINE INJ 10 MG/2 ML AMP IV SCH ×2 (00:03→04:20)
[2021-04-02] MEDS: ALBUTEROL SULFATE 2.5 MG/0.5 ML INH NEB SOLN NEB SCH ×6 (00:12→17:38)
[2021-04-02] MEDS: ENOXAPARIN 100MG/1ML SYRINGE (J1650 PER 10MG) SC SCH ×2 (05:28→17:06)
[2021-04-02 06:09] LABS: BASO % 0.7 % (0.0-1.0); EOS % 0.3 % (0.0-3.0); HEMOGLOBIN 11.6 g/dl (13.5-17.5); MEAN CORPUSCULAR HEMOGLOBIN 32.8 pg (27.0-33.0); MEAN CORPUSCULAR HGB CONC 33.1 g/dl (32.0-36.5); MEAN CORPUSCULAR VOLUME 98.9 fl (80.0-96.0); MONO # 0.4 10^3/uL (0.0-0.8); MONO % 7.2 % (2.0-8.0); NEUTROPHILS # 3.5 10^3/uL (1.5-8.5); NEUTROPHILS % 57.5 % (36.0-66.0); PLATELET COUNT, AUTOMATED 107 10^3/uL (150-450); RED BLOOD COUNT 3.54 10^6/uL (4.30-6.10)
[2021-04-02 06:30] LABS: ALBUMIN 2.8 GM/DL (3.2-5.2); ALT/SGPT 25 U/L (12-78); BILIRUBIN,TOTAL 0.6 MG/DL (0.2-1.0); BLOOD UREA NITROGEN 16 MG/DL (7-18); CALCIUM LEVEL 8.5 MG/DL (8.8-10.2); CARBON DIOXIDE LEVEL 30 MEQ/L (21-32); CHLORIDE LEVEL 104 MEQ/L (98-107); CREATININE FOR GFR 0.76 MG/DL (0.70-1.30); GLOMERULAR FILTRATION RATE > 60.0 (>49); GLUCOSE, FASTING 79 MG/DL (70-100); POTASSIUM SERUM 3.6 MEQ/L (3.5-5.1); SODIUM LEVEL 138 MEQ/L (136-145); TOTAL PROTEIN 6.9 GM/DL (6.4-8.2)
[2021-04-02] MEDS: TIOTROPIUM INHALER/CAPSULE (SPIRIVA) INH SCH (07:17)
[2021-04-02] MEDS ORDERED: PYRIDOSTIGMINE 60MG TABLET PO ONE ×2 (10:00→13:00)
--- NOTE | 2021-04-02 11:56 | IPNPDOC ---
Subjective Date Seen The patient was seen on 04/02/21. Subjective Chief Complaint/HPI SUBJECTIVE: Seen at bedside this morning. Patient states that he notices that his symptoms of dysphagia only improves with the administration of his IV pyridostigmine. Patient received his last dose of the IV pyridostigmine last night around 4am; however, unfortunately our pharmacy has run out of stock for IV formulation of the drug. Patient this morning states that he cannot tolerate any puree food or any meds crushed and mixed in with the food. He states that his L eyelid is still very weak but states that the L eye weakness tends to be somewhat better at night. He reports that last night that he was able to open his left eyelid last night. OBJECTIVE: PHYSICAL EXAM: VS: Blood pressure 137/83 MAP 101 91% room air temperature 97.7 heart rate 71 GENERAL: The patient is a well-developed, well-nourished in no apparent distress. AAOx3 NEURO: No focal neurological deficits. Strength 4 out of 4 throughout, sensation 5 out of 5 throughout downgoing toes bilaterally. eyelid droop bilat erally L >R, with L eye shut closely. HEENT: Head is normocephalic and atraumatic. Extraocular muscles are intact. Prominent L eye lip droop. R side slight droop. Pupils are equal, round, and reactive to light and accommodation. Nares appears normal. Moist mucous membranes. PULM: Clear to auscultation bilaterally. No wheezing, rhonchi or rales appreciated. Enlarged neck circumference, Mallampati 4 CARDIO: Normal S1, S2. no significant murmurs, gallops, rubs or clicks. No signs of peripheral edema ABDOMEN: Obese, soft, nontender, and nondistended. Normal bowel sounds. No significant organomegaly appreciated. EXTREMITIES: No cyanosis, clubbing, rash, lesions. MSK: Range of motion assessed and no limitations LABORATORY:White count 6.0 H&H 11.6/35 platelet 107 sodium 138 potassium 3.6 chloride 104 bicarb 30 BUN/creatinine 16/0.76 fasting glucose 79 mag 2 bili 0.6 AST ALT 16/25 alk phos 57 IMAGING: Head CT without contrast impression: No acute intracranial abnormalities Chest x-ray impression: No active disease Brain MRI without contrast impression: No acute intracranial abnormality MRI of the brain impression: No hemodynamically significant stenosis or large vessel occlusion Carotid artery MRI impression: No hemodynamically significant stenosis Neck CT with contrast impression: No acute abnormality involving soft tissue of the neck. CT chest w/o ctx impression: Somewhat nodular infiltrates are present bilaterally, right upper lobe and left lower lobe most compatible with pneumonitis or inflammatory lung disease. Three to six-month follow-up CT is recommended however. There is no evidence of mediastinal mass to suggest thymoma or adenopathy ASSESSMENT AND PLAN: This is a 70-year-old male who presents to [facility] ER with chief complaint of trouble swallowing and numbness of the tongue blurred vision and numbness of his left face. In the ER his blood pressure was quite elevated with systolic blood pressure of 222 and diastolic blood pressure of 119. He was given a dose of 10 mg IV hydralazine and acute CVA imaging work-up was ordered. Hospitalist team was asked to admit the patient for further management of his care Tongue and lip heaviness/dysphagia/weakness - possible concern for MG - ENT consulted and evaluated patient with bedside fiberoptic laryngoscope and found left vocal cord mobility was absent and right vocal cord mobility was reduced. - Patient dysphagia improved; ST recommended puree diet - Patient does not have any respiratory compromise denies any shortness of breath. - Pending myasthenia markers workup - CT neck did not show thymoma or signs of adenopathy - c/w Pyridostigmine (IV based medications unavailable in pharmacy); c/w NG tube for oral dosing - c/w Prednisone and IVIG (Day #3) - c/w PT OT ST to eval and treat as needed. Will advance diet per ST recs. s/p Hypertensive emergency; unlikely 2/2 acute CVA - Patient's neurological within normal limits; however, more weakness with 4/5 strength throughout. Downgoing toes bilaterally - Work-up for acute CVA with imaging essentially all within normal limits. - However, patient's initial blood pressure 222/119 with subjective neurological complaints making hypertensive emergency higher on my differential. - c/w IV labetalol every 6 hours as needed with parameters (to be given if systolic blood pressure greater than 180). - No longer requires permissive hypertension as MRI evidence of stroke was negative - will continue to monitor bp closely. A. fib rate controlled - Patient is on home Xarelto however Eliquis was ordered on admission (Held 2/2 dysphagia) - c/w Lovenox therapeutic History of asthma - No evidence of exacerbation - Albuterol nebs as needed continue with home Spiriva anxiety all the detail Work related lung injury - CT chest shows nodular infiltrates are present bilaterally, right upper lobe and left lower lobe most compatible with pneumonitis or inflammatory lung disease. 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 - Patient follow with Dr. Burdick outpt for pulmonary to continue follow imaging. DVT prophylaxis - c/w therapeutic Lovenox (Eliquis on hold for dysphagia) GME ATTESTATION GME ATTESTATION My faculty preceptor for this patient encounter was physically present during the encounter and was fully available. All aspects of the patient interview, examination, medical decision making process, and medical care plan development were reviewed and approved by the faculty preceptor. The faculty preceptor is aware and concurs with the plan as stated in the body of this note and will attest to such by his/her cosignature. ATTENDING NOTE I, Sakina Bloom, have independently examined this patient and performed my own physical exam, as well as reviewed the documentation and edited where necessary with the resident. For medical students we have performed the physical exam together and discussed medical decision making and I have verified the history. I have discussed in detail with the resident / student the findings and plan of treatment as documented by the resident / student and edited their note. I agree with their findings and treatment plan and have edited their documentation. I will continue to follow the patient during this hospital stay. Gilbert Madden DO Apr 02, 2021 11:09 SAKINA BLOOM MD Apr 02, 2021 14:08
[2021-04-02] MEDS: PANTOPRAZOLE 40MG VIAL (C9113 PER 1) IV SCH (13:48)
[2021-04-02] MEDS: IMMUNE GLOBULIN 10% 5 GM in IV 1 EA IV SCH (13:49)
[2021-04-02] MEDS: ROSUVASTATIN 10 MG TAB (CRESTOR) PO SCH (14:06)
[2021-04-02] MEDS: SOTALOL HCL 80 MG TAB PO SCH ×2 (14:07→21:21)
[2021-04-02] MEDS: predniSONE 20 MG TAB PO SCH (14:07)
[2021-04-02] MEDS: diltiaZEM **CD** 180 MG CAP PO SCH (14:08)
[2021-04-02] MEDS: IMMUNE GLOBULIN 10% 10 GM in IV 1 EA IV SCH (15:15)
[2021-04-02] MEDS: IMMUNE GLOBULIN 10% 20 GM in IV 1 EA IV SCH (17:01)
[2021-04-02] MEDS: PYRIDOSTIGMINE 60MG TABLET PO SCH ×2 (17:25→21:21)
[2021-04-03] VITALS (14 sets, daily range): BP systolic 120–139; BP diastolic 50–81
[2021-04-03] MEDS: ALBUTEROL SULFATE 2.5 MG/0.5 ML INH NEB SOLN NEB SCH ×7 (00:26→19:39)
[2021-04-03] MEDS: PYRIDOSTIGMINE 60MG TABLET PO SCH ×6 (01:44→20:55)
[2021-04-03] MEDS: ENOXAPARIN 100MG/1ML SYRINGE (J1650 PER 10MG) SC SCH (05:26)
[2021-04-03] MEDS: TIOTROPIUM INHALER/CAPSULE (SPIRIVA) INH SCH (07:58)
[2021-04-03 08:22] LABS: BASO % 0.7 % (0.0-1.0); EOS % 0.5 % (0.0-3.0); HEMATOCRIT 35.6 % (42.0-52.0); LYMPH % 33.3 % (24.0-44.0); MEAN CORPUSCULAR HEMOGLOBIN 32.4 pg (27.0-33.0); MEAN CORPUSCULAR HGB CONC 33.7 g/dl (32.0-36.5); MEAN CORPUSCULAR VOLUME 96.2 fl (80.0-96.0); MONO # 0.6 10^3/uL (0.0-0.8); MONO % 9.2 % (2.0-8.0); NEUTROPHILS # 3.4 10^3/uL (1.5-8.5); PLATELET COUNT, AUTOMATED 134 10^3/uL (150-450)
[2021-04-03 08:53] LABS: ALBUMIN 2.8 GM/DL (3.2-5.2); ALT/SGPT 25 U/L (12-78); BILIRUBIN,TOTAL 0.6 MG/DL (0.2-1.0); BLOOD UREA NITROGEN 12 MG/DL (7-18); CALCIUM LEVEL 8.6 MG/DL (8.8-10.2); CARBON DIOXIDE LEVEL 32 MEQ/L (21-32); CHLORIDE LEVEL 101 MEQ/L (98-107); CREATININE FOR GFR 0.83 MG/DL (0.70-1.30); GLOMERULAR FILTRATION RATE > 60.0 (>49); GLUCOSE, FASTING 119 MG/DL (70-100); POTASSIUM SERUM 3.4 MEQ/L (3.5-5.1); SODIUM LEVEL 137 MEQ/L (136-145); TOTAL PROTEIN 7.5 GM/DL (6.4-8.2)
[2021-04-03] MEDS: ROSUVASTATIN 10 MG TAB (CRESTOR) PO SCH (09:02)
[2021-04-03] MEDS: SOTALOL HCL 80 MG TAB PO SCH ×2 (09:02→20:55)
[2021-04-03] MEDS: diltiaZEM **CD** 180 MG CAP PO SCH (09:02)
[2021-04-03] MEDS: predniSONE 20 MG TAB PO SCH (09:02)
[2021-04-03] MEDS ORDERED: POTASSIUM CHLORIDE 10% LIQ 20 MEQ/15 ML UDC PO ONE (10:30)
--- NOTE | 2021-04-03 10:47 | IPNPDOC ---
Subjective Date Seen The patient was seen on 04/03/21. Subjective Chief Complaint/HPI SUBJECTIVE: Seen at bedside this morning. Patient did tolerate crushed p.o. pyridostigmine yesterday and did not require NG tube for p.o. meds administration. Patient states that his left eye is still weak however this morning he was able to lift his eyelids more than yesterday. Denies dizziness headaches blurry vision, double vision, dizziness, loss of consciousness, presyncope, syncope, dry mouth, nausea, vomiting, diarrhea. OBJECTIVE: PHYSICAL EXAM: VS: Please see below GENERAL: The patient is a well-developed, well-nourished in no apparent distress. AAOx3 NEURO: No focal neurological deficits. Strength 4 out of 4 throughout, sensation 5 out of 5 throughout downgoing toes bilaterally. eyelid droop bilaterally L >R, with L eye shut closely. HEENT: Head is normocephalic and atraumatic. Extraocular muscles are intact. Prominent L eye lip droop. R side slight droop. Pupils are equal, round, and reactive to light and accommodation. Nares appears normal. Moist mucous membranes. PULM: Clear to auscultation bilaterally. No wheezing, rhonchi or rales appreciated. Enlarged neck circumference, Mallampati 4 CARDIO: Normal S1, S2. no significant murmurs, gallops, rubs or clicks. No signs of peripheral edema ABDOMEN: Obese, soft, nontender, and nondistended. Normal bowel sounds. No signi ficant organomegaly appreciated. EXTREMITIES: No cyanosis, clubbing, rash, lesions. MSK: Range of motion assessed and no limitations LABORATORY: White count 6.0 H&H 11.6/35 platelet 107 sodium 138 potassium 3.6 chloride 104 bicarb 30 BUN/creatinine 16/0.76 fasting glucose 79 mag 2 bili 0.6 AST ALT 16/25 alk phos 57 IMAGING: CXR 03/28: No active disease CT head wo contrast 03/28: No acute intracranial abnormality. MRA carotid arteries 03/28: No hemodynamically significant stenosis. MRI brain wo contrast 06/28: No acute intracranial abnormality. MRA brain wo contrast 03/28: No hemodynamically significant stenosis or large vessel occlusion. CT neck 03/29: No acute abnormality involving the soft tissues of the neck. CT chest 03/31: Somewhat nodular infiltrates are present bilaterally, right upper lobe and left lower lobe most compatible with pneumonitis or inflammatory lung disease. Three to six-month follow-up CT is recommended however. There is no evidence of mediastinal mass to suggest thymoma or adenopathy ASSESSMENT AND PLAN: This is a 70-year-old male who presents to [facility] ER with chief complaint of trouble swallowing and numbness of the tongue blurred vision and numbness of his left face. In the ER his blood pressure was quite elevated with systolic blood pressure of 222 and diastolic blood pressure of 119. He was given a dose of 10 mg IV hydralazine and acute CVA imaging work-up was ordered. Hospitalist team was asked to admit the patient for further management of his care Tongue and lip heaviness/dysphagia/weakness - likely 2/2 Myasthenia Gravis, unlikely 2/2 CVA - Patient dysphagia improved - Patient reports that he is able to swallow better with the increased dose of pyridostigmine and requests advancement of diet - Patient does not have any respiratory compromise denies any shortness of breath. - Pending myasthenia markers workup - Imaging without evidence of thymoma (See above) - c/w Pyridostigmine PO; s/p IV dosing - c/w Prednisone and IVIG (Day #4) - ST following; will advance diet today if tolerating; we will start him on mechanical soft. - c/w PT / OT - ENT consulted; appreciate recommendations - bedside fiberoptic laryngoscope and found left vocal cord mobility was absent and right vocal cord mobility was reduced. - Neurology consulted; appreciate their recommendations HTN - s/p Hypertensive emergency - Patient's neurological within normal limits; however, more weakness with 4/5 strength throughout. Downgoing toes bilaterally - Work-up for acute CVA with imaging essentially all within normal limits. - However, patient's initial blood pressure 222/119 with subjective neurological complaints making hypertensive emergency higher on my differential. - s/p Labetalol - c/w Diltiazem - No longer requires permissive hypertension as MRI evidence of stroke was negative - will continue to monitor bp closely. A. fib rate controlled - Remains rate controlled - c/w Sotalol and Diltiazem - Will resume Xarelto; Will DC Lovenox (re: Tolerating PO) DLP - c/w Rosuvastatin History of asthma - No evidence of exacerbation - Albuterol nebs as needed continue with home Spiriva anxiety all the detail Work related lung injury - CT chest shows nodular infiltrates are present bilaterally, right upper lobe and left lower lobe most compatible with pneumonitis or inflammatory lung disease. 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 - Patient follow with Dr. Burdick outpt for pulmonary to continue follow imaging. DVT prophylaxis - Will resume Xarelto - Will DC therapeutic Lovenox (re: Tolerating PO) Code status: - Full Disposition: - Pending clinical improvement VS, I&O, 24H, Fishbone Vital Signs/I&O Vital Signs Date Time Temp Pulse Resp B/P (MAP) Pulse Ox O2 Delivery O2 Flow Rate FiO2 04/03/21 09:02 62 138/81 04/03/21 06:00 97.9 18 95 Room Air 03/30/21 04:00 2.0 I&O- Last 24 Hours up to 6 AM 04/03/21 06:00 Intake Total 440 ml Output Total 925 ml Balance -485 ml Laboratory Data 24H LABS Laboratory Tests 2 04/03/21 07:54: Immature Granulocyte % (Auto) 0.3, Neutrophils (%) (Auto) 56.0, Lymphocytes (%) (Auto) 33.3, Monocytes (%) (Auto) 9.2H, Eosinophils (%) (Auto) 0.5, Basophils (%) (Auto) 0.7, Neutrophils # (Auto) 3.4, Lymphocytes # (Auto) 2.0, Monocytes # (Auto) 0.6, Eosinophils # (Auto) 0.0, Basophils # (Auto) 0.0, Nucleated Red Blood Cells % (auto) 0.0, Anion Gap 4L, Glomerular Filtration Rate > 60.0, Calcium Level 8.6L, Magnesium Level 2.0, Total Bilirubin 0.6, Aspartate Amino Tr ansf (AST/SGOT) 13, Alanine Aminotransferase (ALT/SGPT) 25, Alkaline Phosphatase 57, Total Protein 7.5, Albumin 2.8L, Albumin/Globulin Ratio 0.6 CBC/BMP Laboratory Tests 04/03/21 07:54 GME ATTESTATION GME ATTESTATION My faculty preceptor for this patient encounter was physically present during the encounter and was fully available. All aspects of the patient interview, examination, medical decision making process, and medical care plan development were reviewed and approved by the faculty preceptor. The faculty preceptor is aware and concurs with the plan as stated in the body of this note and will attest to such by his/her cosignature. ATTENDING NOTE I, Sakina Bloom, have independently examined this patient and performed my own physical exam, as well as reviewed the documentation and edited where necessary with the resident. For medical students we have performed the physical exam together and discussed medical decision making and I have verified the history. I have discussed in detail with the resident / student the findings and plan of treatment as documented by the resident / student and edited their note. I agree with their findings and treatment plan and have edited their documentation. I will continue to follow the patient during this hospital stay. Gilbert Madden DO Apr 03, 2021 10:47 SAKINA BLOOM MD Apr 03, 2021 13:36
[2021-04-03] MEDS: PANTOPRAZOLE 40MG VIAL (C9113 PER 1) IV SCH (12:13)
[2021-04-03] MEDS: IMMUNE GLOBULIN 10% 5 GM in IV 1 EA IV SCH (12:14)
[2021-04-03] MEDS: IMMUNE GLOBULIN 10% 10 GM in IV 1 EA IV SCH (13:25)
[2021-04-03] MEDS: IMMUNE GLOBULIN 10% 20 GM in IV 1 EA IV SCH (15:23)
[2021-04-03] MEDS: RIVAROXABAN 20 MG TAB (XARELTO) PO SCH (17:03)
[2021-04-04] VITALS (12 sets, daily range): BP systolic 125–150; BP diastolic 62–77
[2021-04-04] MEDS: PYRIDOSTIGMINE 60MG TABLET PO SCH ×5 (01:05→16:53)
[2021-04-04] MEDS: ALBUTEROL SULFATE 2.5 MG/0.5 ML INH NEB SOLN NEB SCH ×5 (03:11→15:35)
[2021-04-04 06:38] LABS: BASO % 0.5 % (0.0-1.0); EOS % 0.3 % (0.0-3.0); HEMATOCRIT 37.2 % (42.0-52.0); HEMOGLOBIN 12.2 g/dl (13.5-17.5); LYMPH # 2.3 10^3/uL (1.5-5.0); LYMPH % 28.6 % (24.0-44.0); MEAN CORPUSCULAR HEMOGLOBIN 32.2 pg (27.0-33.0); MEAN CORPUSCULAR HGB CONC 32.8 g/dl (32.0-36.5); MEAN CORPUSCULAR VOLUME 98.2 fl (80.0-96.0); MONO # 0.6 10^3/uL (0.0-0.8); MONO % 7.5 % (2.0-8.0); NEUTROPHILS % 62.7 % (36.0-66.0); PLATELET COUNT, AUTOMATED 146 10^3/uL (150-450); RED BLOOD COUNT 3.79 10^6/uL (4.30-6.10); WHITE BLOOD COUNT 7.9 10^3/uL (4.0-10.0)
[2021-04-04 07:01] LABS: ALT/SGPT 27 U/L (12-78); BILIRUBIN,TOTAL 0.7 MG/DL (0.2-1.0); BLOOD UREA NITROGEN 14 MG/DL (7-18); CALCIUM LEVEL 8.1 MG/DL (8.8-10.2); CARBON DIOXIDE LEVEL 31 MEQ/L (21-32); CHLORIDE LEVEL 101 MEQ/L (98-107); CREATININE FOR GFR 0.95 MG/DL (0.70-1.30); GLOMERULAR FILTRATION RATE > 60.0 (>49); GLUCOSE, FASTING 81 MG/DL (70-100); MAGNESIUM LEVEL 1.9 MG/DL (1.8-2.4); POTASSIUM SERUM 3.9 MEQ/L (3.5-5.1); SODIUM LEVEL 136 MEQ/L (136-145); TOTAL PROTEIN 8.3 GM/DL (6.4-8.2)
[2021-04-04] MEDS: TIOTROPIUM INHALER/CAPSULE (SPIRIVA) INH SCH (07:23)
[2021-04-04] MEDS ORDERED: predniSONE 20 MG TAB PO SCH (09:00)
[2021-04-04] MEDS ORDERED: PRED20TA PO (09:05)
[2021-04-04] MEDS ORDERED: PYRI60TA2 PO ×2 (09:05→17:04)
[2021-04-04] MEDS: ROSUVASTATIN 10 MG TAB (CRESTOR) PO SCH (09:06)
[2021-04-04] MEDS: diltiaZEM **CD** 180 MG CAP PO SCH (09:06)
[2021-04-04] MEDS: SOTALOL HCL 80 MG TAB PO SCH (09:07)
--- NOTE | 2021-04-04 11:03 | DS.PDOC ---
Discharge Summary General Date of Admission Mar 29, 2021 at 04:45 Date of Discharge 04/04/2021 Discharge Summary PROCEDURES PERFORMED DURING STAY: Bedside fiberoptic laryngoscope and found left vocal cord mobility was absent and right vocal cord mobility was reduced on 03/29/[address] Lawson ADMITTING DIAGNOSES / DISCHARGE DIAGNOSES: s/p Dysphagia / Difficulty expressing self - likely 2/2 Myasthenia Gravis, unlikely 2/2 CVA HTN A. fib rate controlled DLP Chronic Asthma / Work related lung injury DVT prophylaxis COMPLICATIONS/CHIEF COMPLAINT: Difficulty swallowing / Speaking HISTORY OF PRESENT ILLNESS: Patient is a 70-year-old male with a PMHx of A. fib (s/p Ablation, on Xarelto), HTN, Asthma who presented to the emergency room with slurred speech and difficulty swallowing. Patient was admitted to hospital service for further evaluation and treatment. Neurology was called on consultation. Patient was seen and examined at the bedside reports that he has been tolerating a 2 g sodium diet. Denies any chest pain, shortness of breath or palpitations. Reports that he's been ambulating without any difficulty. Denies any abdominal pain, diarrhea, or urinary discomfort. HOSPITAL COURSE: s/p Dysphagia / Difficulty expressing self - likely 2/2 Myasthenia Gravis, unlikely 2/2 CVA - Clinically has reported resolution of his dysphagia and has been tolerating regular consistency food - Has been able to speak without difficulty / ambulating without difficulty - Myasthenia markers pending - Imaging noted above - Completed 5 days of IVIG - Will c/w Prednisone on discharge - Will c/w Pyridostigmine QID on discharge - ENT was initially called on consultation; appreciate their input - Neurology was called on consultation; appreciate their input - Cleared by PT for DC home with services - Will DC home with services and outpatient follow-up with primary care provider, and urology within the next 7 days HTN - s/p Hypertensive emergency - s/p Labetalol - c/w Diltiazem A. fib rate controlled - Remains rate controlled - c/w Sotalol and Diltiazem - c/w Xarelto DLP - c/w Rosuvastatin Chronic Asthma / Work related lung injury - No evidence of exacerbation - c/w Inhaled therapy as ordered - Will have outpatient follow-up with pulmonology for repeat imaging DVT prophylaxis - c/w Xarelto DISCHARGE MEDICATIONS: Please see below. ALLERGIES: Please see below. PHYSICAL EXAMINATION ON DISCHARGE: Vitals (See below) General: Lying in bed, appears comfortable, AAOx3 HEENT: NC, AT CVS: +S1S2 Lungs: Fair air entry b/l, -w/r/r Abdomen: Soft, ND, NT Extremities: No evidence of edema LABORATORY DATA: Please see below. IMAGING: CXR 03/28: No active disease CT head wo contrast 03/28: No acute intracranial abnormality. MRA carotid arteries 03/28: No hemodynamically significant stenosis. MRI brain wo contrast 06/28: No acute intracranial abnormality. MRA brain wo contrast 03/28: No hemodynamically significant stenosis or large vessel occlusion. CT neck 03/29: No acute abnormality involving the soft tissues of the neck. CT chest 03/31: Somewhat nodular infiltrates are present bilaterally, right upper lobe and left lower lobe most compatible with pneumonitis or inflammatory lung disease. Three to six-month follow-up CT is recommended however. There is no evidence of mediastinal mass to suggest thymoma or adenopathy ACTIVITY: [As tolerated]. DISCHARGE PLAN: Follow-up with primary care provider and neurology within the next 7 days Remain compliant with treatment plan and medications Return to the ER if you experience any problems DISPOSITION: Home with services DISCHARGE CONDITION: [Stable]. TIME SPENT ON DISCHARGE: 35 minutes. Vital Signs/I&Os Vital Signs Date Time Temp Pulse Resp B/P (MAP) Pulse Ox O2 Delivery O2 Flow Rate FiO2 04/04/21 06:00 97.9 54 18 150/67 (94) 93 Room Air 03/30/21 04:00 2.0 I&O- Last 24 Hours up to 6 AM 04/04/21 06:00 Intake Total 2480 ml Output Total 425 ml Balance 2055 ml Laboratory Data Labs 24H Laboratory Tests 2 04/04/21 05:59: Immature Granulocyte % (Auto) 0.4, Neutrophils (%) (Auto) 62.7, Lymphocytes (%) (Auto) 28.6, Monocytes (%) (Auto) 7.5, Eosinophils (%) (Auto) 0.3, Basophils (%) (Auto) 0.5, Neutrophils # (Auto) 5.0, Lymphocytes # (Auto) 2.3, Monocytes # (Auto) 0.6, Eosinophils # (Auto) 0.0, Basophils # (Auto) 0.0, Nucleated Red Blood Cells % (auto) 0.0, Anion Gap 4L, Glomerular Filtration Rate > 60.0, Calcium Level 8.1L, Magnesium Level 1.9, Total Bilirubin 0.7, Aspartate Amino Transf (AST/SGOT) 16, Alanine Aminotransferase (ALT/SGPT) 27, Alkaline Phosphatase 58, Total Protein 8.3H, Albumin 3.0L, Albumin/Globulin Ratio 0.6 CBC/BMP Laboratory Tests 04/04/21 05:59 Discharge Medications Scheduled Diltiazem HCl (Diltiazem 24Hr ER) 180 Mg Cap, 180 MG PO DAILY, (Reported) Prednisone (Prednisone) 20 Mg Tablet, 2 TAB PO DAILY Continue for 04/05/2021 to 04/07/2021 Prednisone (Prednisone) 20 Mg Tablet, 3 TAB PO DAILY Start on 04/08/2021 Pyridostigmine [place] (Pyridostigmine [place]) 60 Mg Tablet, 60 MG PO QID Rivaroxaban (Xarelto) 20 Mg Tablet, 20 MG PO DAILY, (Reported) Rosuvastatin Calcium (Rosuvastatin Calcium) 20 Mg Tablet, 20 MG PO DAILY, (Reported) Sotalol HCl (Sotalol) 80 Mg Tab, 80 MG PO BID, (Reported) Tiotropium [place] (Spiriva) 18 Mcg Cap, 2 PUFFS IN DAILY, (Reported) Allergies Coded Allergies: No Known Drug Allergies (Verified Allergy, Unknown, 12/01/20) AJ BLOOM MD Apr 04, 2021 11:03
[2021-04-04] MEDS: IMMUNE GLOBULIN 10% 5 GM in IV 1 EA IV SCH (11:31)
[2021-04-04] MEDS: IMMUNE GLOBULIN 10% 10 GM in IV 1 EA IV SCH (12:37)
[2021-04-04] MEDS: IMMUNE GLOBULIN 10% 20 GM in IV 1 EA IV SCH (14:20)
[2021-04-04] MEDS: RIVAROXABAN 20 MG TAB (XARELTO) PO SCH (16:53)
== END 2021-04-04 18:48 | disposition home health service (06) | DRG 57 ==
LOC: M ED 19:58 → M ED INP 03-29 04:07 → UNDOADMIN 03-29 04:07 → ENRESERV 03-29 04:19 → M ED INP 03-29 04:45 → M PCU 03-29 04:56 → M ICU 03-29 05:09 → M PCU 03-30 12:33 → M MSPAV 04-02 16:26
PROVIDERS: ADMIT Family Medicine; ATTEND Internal Medicine
PROC: 0CJS8ZZ Inspection of Larynx, Via Natural or Artificial Opening Endoscopic (ICD-10-PCS; principal; 2021-03-29)
DX: G70.00 Myasthenia gravis without (acute) exacerbation (principal); I16.1 Hypertensive emergency; I10 Essential (primary) hypertension; I48.91 Unspecified atrial fibrillation; R13.10 Dysphagia, unspecified; R47.81 Slurred speech; J45.909 Unspecified asthma, uncomplicated; Z20.822 Contact with and (suspected) exposure to COVID-19; Z96.643 Presence of artificial hip joint, bilateral; Z79.01 Long term (current) use of anticoagulants; Z79.899 Other long term (current) drug therapy

== ENCOUNTER → 2021-05-04 | Outpatient (CLI) | payer MEDICARE ==
[~2021-05-04] MED LIST changes: +PRED20TA PO; +PYRI60TA2 PO; +ROSU20TA5 PO
[2021-05-04 14:06] LABS: BASO % 0.1 % (0.0-1.0); EOS % 0.2 % (0.0-3.0); HEMATOCRIT 42.1 % (42.0-52.0); HEMOGLOBIN 13.3 g/dl (13.5-17.5); LYMPH # 1.2 10^3/uL (1.5-5.0); LYMPH % 13.5 % (24.0-44.0); MEAN CORPUSCULAR HEMOGLOBIN 32.1 pg (27.0-33.0); MEAN CORPUSCULAR HGB CONC 31.6 g/dl (32.0-36.5); MEAN CORPUSCULAR VOLUME 101.7 fl (80.0-96.0); MONO # 0.4 10^3/uL (0.0-0.8); MONO % 4.8 % (2.0-8.0); NEUTROPHILS # 7.1 10^3/uL (1.5-8.5); NEUTROPHILS % 80.6 % (36.0-66.0); PLATELET COUNT, AUTOMATED 132 10^3/uL (150-450); RED BLOOD COUNT 4.14 10^6/uL (4.30-6.10); WHITE BLOOD COUNT 8.8 10^3/uL (4.0-10.0)
== END ==
LOC: M WUC 09:16
PROVIDERS: ATTEND Psychiatry & Neurology Neurology
DX: G70.00 Myasthenia gravis without (acute) exacerbation (principal)

== ENCOUNTER → 2021-05-11 | Outpatient (CLI) | payer MEDICARE ==
[2021-05-11 13:48] LABS: BASO % 0.1 % (0.0-1.0); HEMATOCRIT 44.9 % (42.0-52.0); HEMOGLOBIN 14.1 g/dl (13.5-17.5); LYMPH # 0.6 10^3/uL (1.5-5.0); LYMPH % 6.5 % (24.0-44.0); MEAN CORPUSCULAR HGB CONC 31.4 g/dl (32.0-36.5); MEAN CORPUSCULAR VOLUME 101.8 fl (80.0-96.0); MONO # 0.2 10^3/uL (0.0-0.8); MONO % 2.2 % (2.0-8.0); NEUTROPHILS # 8.8 10^3/uL (1.5-8.5); NEUTROPHILS % 90.3 % (36.0-66.0); PLATELET COUNT, AUTOMATED 172 10^3/uL (150-450); RED BLOOD COUNT 4.41 10^6/uL (4.30-6.10); WHITE BLOOD COUNT 9.8 10^3/uL (4.0-10.0)
== END ==
LOC: M WUC 10:12
PROVIDERS: ATTEND Psychiatry & Neurology Neurology
DX: G70.00 Myasthenia gravis without (acute) exacerbation (principal)

== ENCOUNTER → 2021-05-18 | Outpatient (CLI) | payer MEDICARE ==
[2021-05-18 11:20] LABS: BASO # 0.1 10^3/uL (0.0-0.2); BASO % 0.4 % (0.0-1.0); EOS % 0.1 % (0.0-3.0); HEMATOCRIT 43.6 % (42.0-52.0); LYMPH # 1.7 10^3/uL (1.5-5.0); MEAN CORPUSCULAR HEMOGLOBIN 32.3 pg (27.0-33.0); MEAN CORPUSCULAR HGB CONC 32.1 g/dl (32.0-36.5); MEAN CORPUSCULAR VOLUME 100.7 fl (80.0-96.0); MONO # 0.6 10^3/uL (0.0-0.8); MONO % 5.1 % (2.0-8.0); NEUTROPHILS # 8.6 10^3/uL (1.5-8.5); NEUTROPHILS % 77.1 % (36.0-66.0); PLATELET COUNT, AUTOMATED 153 10^3/uL (150-450); RED BLOOD COUNT 4.33 10^6/uL (4.30-6.10); WHITE BLOOD COUNT 11.2 10^3/uL (4.0-10.0)
== END ==
LOC: M WUC 09:18
PROVIDERS: ATTEND Psychiatry & Neurology Neurology
DX: G70.00 Myasthenia gravis without (acute) exacerbation (principal)

== ENCOUNTER → 2021-05-25 | Outpatient (CLI) | payer MEDICARE ==
[2021-05-25 11:44] LABS: BASO % 0.4 % (0.0-1.0); EOS % 0.2 % (0.0-3.0); HEMOGLOBIN 14.3 g/dl (13.5-17.5); LYMPH # 1.2 10^3/uL (1.5-5.0); LYMPH % 10.7 % (24.0-44.0); MEAN CORPUSCULAR HEMOGLOBIN 32.1 pg (27.0-33.0); MEAN CORPUSCULAR HGB CONC 31.8 g/dl (32.0-36.5); MEAN CORPUSCULAR VOLUME 101.1 fl (80.0-96.0); MONO # 0.4 10^3/uL (0.0-0.8); NEUTROPHILS % 82.7 % (36.0-66.0); PLATELET COUNT, AUTOMATED 151 10^3/uL (150-450); RED BLOOD COUNT 4.45 10^6/uL (4.30-6.10); WHITE BLOOD COUNT 10.8 10^3/uL (4.0-10.0)
== END ==
LOC: M WUC 09:11
PROVIDERS: ATTEND Psychiatry & Neurology Neurology
DX: G70.00 Myasthenia gravis without (acute) exacerbation (principal)

== ENCOUNTER → 2021-06-08 | Outpatient (CLI) | payer MEDICARE ==
[2021-06-08 12:17] LABS: BASO # 0.1 10^3/uL (0.0-0.2); BASO % 0.6 % (0.0-1.0); EOS # 0.1 10^3/uL (0.0-0.5); EOS % 0.6 % (0.0-3.0); HEMATOCRIT 45.2 % (42.0-52.0); HEMOGLOBIN 14.4 g/dl (13.5-17.5); LYMPH # 3.5 10^3/uL (1.5-5.0); LYMPH % 35.7 % (24.0-44.0); MEAN CORPUSCULAR HEMOGLOBIN 32.3 pg (27.0-33.0); MEAN CORPUSCULAR HGB CONC 31.9 g/dl (32.0-36.5); MEAN CORPUSCULAR VOLUME 101.3 fl (80.0-96.0); MONO # 0.6 10^3/uL (0.0-0.8); MONO % 6.4 % (2.0-8.0); NEUTROPHILS # 5.5 10^3/uL (1.5-8.5); NEUTROPHILS % 55.1 % (36.0-66.0); PLATELET COUNT, AUTOMATED 133 10^3/uL (150-450); RED BLOOD COUNT 4.46 10^6/uL (4.30-6.10); WHITE BLOOD COUNT 9.9 10^3/uL (4.0-10.0)
== END ==
LOC: M WUC 09:09
PROVIDERS: ATTEND Psychiatry & Neurology Neurology
DX: G70.00 Myasthenia gravis without (acute) exacerbation (principal)

== ENCOUNTER → 2021-06-22 | Outpatient (CLI) | payer MEDICARE ==
[2021-06-22 16:03] LABS: BASO % 0.4 % (0.0-1.0); HEMATOCRIT 42.8 % (42.0-52.0); HEMOGLOBIN 14.1 g/dl (13.5-17.5); LYMPH # 0.8 10^3/uL (1.5-5.0); LYMPH % 8.1 % (24.0-44.0); MEAN CORPUSCULAR HEMOGLOBIN 32.9 pg (27.0-33.0); MEAN CORPUSCULAR HGB CONC 32.9 g/dl (32.0-36.5); MONO # 0.4 10^3/uL (0.0-0.8); MONO % 3.8 % (2.0-8.0); NEUTROPHILS # 8.1 10^3/uL (1.5-8.5); NEUTROPHILS % 84.2 % (36.0-66.0); PLATELET COUNT, AUTOMATED 160 10^3/uL (150-450); RED BLOOD COUNT 4.28 10^6/uL (4.30-6.10); WHITE BLOOD COUNT 9.6 10^3/uL (4.0-10.0)
== END ==
LOC: M WUC 13:16
PROVIDERS: ATTEND Psychiatry & Neurology Neurology
DX: G70.00 Myasthenia gravis without (acute) exacerbation (principal)

== ENCOUNTER → 2021-09-03 | Outpatient (CLI) | payer MEDICARE ==
[2021-09-03 12:08] LABS: BASO # 0.1 10^3/uL (0.0-0.2); BASO % 0.7 % (0.0-1.0); EOS # 0.1 10^3/uL (0.0-0.5); EOS % 1.1 % (0.0-3.0); HEMATOCRIT 40.1 % (42.0-52.0); HEMOGLOBIN 13.2 g/dl (13.5-17.5); LYMPH # 1.8 10^3/uL (1.5-5.0); MEAN CORPUSCULAR HEMOGLOBIN 32.6 pg (27.0-33.0); MEAN CORPUSCULAR HGB CONC 32.9 g/dl (32.0-36.5); MONO # 0.9 10^3/uL (0.0-0.8); MONO % 9.4 % (2.0-8.0); NEUTROPHILS # 6.9 10^3/uL (1.5-8.5); NEUTROPHILS % 70.3 % (36.0-66.0); PLATELET COUNT, AUTOMATED 264 10^3/uL (150-450); RED BLOOD COUNT 4.05 10^6/uL (4.30-6.10); WHITE BLOOD COUNT 9.8 10^3/uL (4.0-10.0)
[2021-09-03 12:43] LABS: ERYTHROCYTE SEDIMENTATION RATE 49 mm/hr (0-20)
== END ==
LOC: M LAB 11:16
PROVIDERS: ATTEND Internal Medicine Infectious Disease
DX: T84.52XA Infection and inflammatory reaction due to internal left hip prosthesis, initial encounter (principal); Y79.2 Prosthetic and other implants, materials and accessory orthopedic devices associated with adverse incidents

== ENCOUNTER → 2021-09-03 | Outpatient (CLI) | payer MEDICARE ==
[2021-09-03 12:38] LABS: BLOOD UREA NITROGEN 13 MG/DL (7-18); CREATININE FOR GFR 0.94 MG/DL (0.70-1.30); GLOMERULAR FILTRATION RATE > 60.0 (>42)
== END ==
LOC: M LAB 11:20
PROVIDERS: ATTEND Internal Medicine Pulmonary Disease
DX: J68.4 Chronic respiratory conditions due to chemicals, gases, fumes and vapors (principal)

== ENCOUNTER → 2021-09-08 | Outpatient (CLI) | payer MEDICARE ==
[~2021-09-08] MED LIST changes: +ISOVUE-370 76% 100ML VIAL As Ordered ONE
== END ==
LOC: M RAD 08:30
PROVIDERS: ATTEND Internal Medicine Pulmonary Disease
DX: R91.8 Other nonspecific abnormal finding of lung field (principal)
CPT/HCPCS: 71260; Q9967

== ENCOUNTER → 2021-09-09 | Outpatient (CLI) | payer MEDICARE ==
[~2021-09-09] MED LIST changes: -ISOVUE-370 76% 100ML VIAL As Ordered ONE
[2021-09-09 11:34] LABS: BASO # 0.1 10^3/uL (0.0-0.2); BASO % 0.9 % (0.0-1.0); EOS # 0.2 10^3/uL (0.0-0.5); EOS % 2.4 % (0.0-3.0); HEMATOCRIT 36.6 % (42.0-52.0); HEMOGLOBIN 11.9 g/dl (13.5-17.5); LYMPH # 2.2 10^3/uL (1.5-5.0); MEAN CORPUSCULAR HEMOGLOBIN 32.2 pg (27.0-33.0); MEAN CORPUSCULAR HGB CONC 32.5 g/dl (32.0-36.5); MEAN CORPUSCULAR VOLUME 99.2 fl (80.0-96.0); MONO # 0.8 10^3/uL (0.0-0.8); MONO % 9.6 % (2.0-8.0); NEUTROPHILS # 4.9 10^3/uL (1.5-8.5); NEUTROPHILS % 59.7 % (36.0-66.0); PLATELET COUNT, AUTOMATED 240 10^3/uL (150-450); RED BLOOD COUNT 3.69 10^6/uL (4.30-6.10); WHITE BLOOD COUNT 8.2 10^3/uL (4.0-10.0)
[2021-09-09 12:17] LABS: ERYTHROCYTE SEDIMENTATION RATE 50 mm/hr (0-20)
[2021-09-09 13:45] LABS: ALBUMIN 3.1 GM/DL (3.2-5.2); ALT/SGPT 25 U/L (12-78); BILIRUBIN,TOTAL 0.2 MG/DL (0.2-1.0); BLOOD UREA NITROGEN 9 MG/DL (7-18); C REACTIVE PROTEIN QUANTITATIV 2.82 MG/DL (0.00-0.30); CALCIUM LEVEL 9.1 MG/DL (8.8-10.2); CARBON DIOXIDE LEVEL 37 MEQ/L (21-32); CHLORIDE LEVEL 94 MEQ/L (98-107); CREATININE FOR GFR 0.82 MG/DL (0.70-1.30); GLOMERULAR FILTRATION RATE > 60.0 (>42); GLUCOSE, FASTING 189 MG/DL (70-100); POTASSIUM SERUM 3.1 MEQ/L (3.5-5.1); SODIUM LEVEL 139 MEQ/L (136-145); TOTAL PROTEIN 6.1 GM/DL (6.4-8.2)
== END ==
LOC: M PLALAB 08:27
PROVIDERS: ATTEND Internal Medicine Infectious Disease
DX: T84.52XA Infection and inflammatory reaction due to internal left hip prosthesis, initial encounter (principal)

== ENCOUNTER → 2021-09-20 | Outpatient (CLI) | payer MEDICARE ==
[2021-09-20 12:20] LABS: BASO # 0.1 10^3/uL (0.0-0.2); EOS # 0.3 10^3/uL (0.0-0.5); EOS % 3.1 % (0.0-3.0); HEMATOCRIT 37.3 % (42.0-52.0); LYMPH # 2.1 10^3/uL (1.5-5.0); LYMPH % 25.2 % (24.0-44.0); MEAN CORPUSCULAR HEMOGLOBIN 31.2 pg (27.0-33.0); MEAN CORPUSCULAR HGB CONC 32.2 g/dl (32.0-36.5); MEAN CORPUSCULAR VOLUME 96.9 fl (80.0-96.0); MONO # 0.9 10^3/uL (0.0-0.8); MONO % 11.3 % (2.0-8.0); NEUTROPHILS # 4.8 10^3/uL (1.5-8.5); PLATELET COUNT, AUTOMATED 263 10^3/uL (150-450); RED BLOOD COUNT 3.85 10^6/uL (4.30-6.10); WHITE BLOOD COUNT 8.1 10^3/uL (4.0-10.0)
[2021-09-20 12:47] LABS: ERYTHROCYTE SEDIMENTATION RATE 52 mm/hr (0-20)
== END ==
LOC: M WUC 10:55
PROVIDERS: ATTEND Internal Medicine Infectious Disease
DX: T84.52XA Infection and inflammatory reaction due to internal left hip prosthesis, initial encounter (principal)

== ENCOUNTER → 2021-09-23 | Outpatient (CLI) | payer MEDICARE ==
[~2021-09-23] MED LIST changes: +LIDOCAINE 1% MDV 20ML VIAL As Ordered ONE; +MYCO250C PO
[2021-09-23 14:00] VITALS: BP 130/69
[2021-09-23 15:02] LABS: CRYSTALS, BODY FLUID NONE SEEN (NONE SEEN); SOURCE, BODY FLUID LT HIP; SOURCE, BODY FLUID CRYSTALS LEFT HIP; SYNOVIAL FLUID COLOR PINK (COLORLESS)
[2021-09-23 15:20] LABS: SOURCE, BODY FLUID GLUCOSE HIP LEFT; URIC ACID, BODY FLUID 4.7 MG/DL (NOT ESTABLISHED)
[2021-09-23 15:32] LABS: SOURCE, BODY FLUID URIC ACID OTHER
== END ==
LOC: M IRPRO 12:57
PROVIDERS: ATTEND Orthopaedic Surgery
DX: T84.52XD Infection and inflammatory reaction due to internal left hip prosthesis, subsequent encounter (principal)

== ENCOUNTER → 2021-12-10 | Outpatient (CLI) | payer MEDICARE ==
[~2021-12-10] MED LIST changes: +ALBU2.5V10 INH; -ALBU83IN INH; -LIDOCAINE 1% MDV 20ML VIAL As Ordered ONE
[2021-12-10 16:37] LABS: HEMATOCRIT 36.7 % (42.0-52.0); MEAN CORPUSCULAR HEMOGLOBIN 26.6 pg (27.0-33.0); MEAN CORPUSCULAR VOLUME 88.9 fl (80.0-96.0); PLATELET COUNT, AUTOMATED 191 10^3/uL (150-450); RED BLOOD COUNT 4.13 10^6/uL (4.30-6.10); WHITE BLOOD COUNT 7.5 10^3/uL (4.0-10.0)
[2021-12-10 17:04] LABS: BLOOD UREA NITROGEN 15 MG/DL (7-18); CALCIUM LEVEL 9.1 MG/DL (8.8-10.2); CARBON DIOXIDE LEVEL 29 MEQ/L (21-32); CHLORIDE LEVEL 105 MEQ/L (98-107); CREATININE FOR GFR 0.75 MG/DL (0.70-1.30); GLOMERULAR FILTRATION RATE > 60.0 (>42); GLUCOSE, FASTING 164 MG/DL (70-100); POTASSIUM SERUM 4.1 MEQ/L (3.5-5.1); SODIUM LEVEL 140 MEQ/L (136-145)
== END ==
LOC: M WUC 13:09
PROVIDERS: ATTEND Internal Medicine Cardiovascular Disease
DX: I47.2 Ventricular tachycardia (principal); I48.0 Paroxysmal atrial fibrillation; I11.0 Hypertensive heart disease with heart failure

== ENCOUNTER → 2021-12-20 | Outpatient (REF) | payer MEDICARE | LOC: M LABWUC 15:35 | PROVIDERS: ATTEND Orthopaedic Surgery | DX: R79.82 Elevated C-reactive protein (CRP) (principal); M02.39 Reiter's disease, multiple sites ==

== ENCOUNTER → 2022-02-01 | Outpatient (CLI) | payer MEDICARE ==
[2022-02-01 15:28] LABS: PROTHROMBIN TIME 13.6 SECONDS (12.7-14.5)
== END ==
LOC: M WUC 12:58
PROVIDERS: ATTEND Physician Assistant
DX: I48.0 Paroxysmal atrial fibrillation (principal)

== ENCOUNTER → 2022-02-08 | Outpatient (CLI) | payer MEDICARE ==
[2022-02-08 17:24] LABS: INR 3.16; PROTHROMBIN TIME 32.7 SECONDS (12.7-14.5)
== END ==
LOC: M WUC 14:11
PROVIDERS: ATTEND Internal Medicine Cardiovascular Disease
DX: I48.0 Paroxysmal atrial fibrillation (principal)

== ENCOUNTER → 2022-02-17 | Outpatient (REF) | payer MEDICARE ==
[2022-02-17 13:45] LABS: INR 3.4; PROTHROMBIN TIME 34.6 SECONDS (12.7-14.5)
== END ==
LOC: M WUC 12:14
PROVIDERS: ATTEND Internal Medicine Cardiovascular Disease
DX: I48.0 Paroxysmal atrial fibrillation (principal)

== ENCOUNTER → 2022-02-22 | Outpatient (CLI) | payer MEDICARE ==
[2022-02-22 16:58] LABS: INR 2.59; PROTHROMBIN TIME 28.1 SECONDS (12.7-14.5)
== END ==
LOC: M WUC 14:02
PROVIDERS: ATTEND Internal Medicine Cardiovascular Disease
DX: I48.0 Paroxysmal atrial fibrillation (principal)

== ENCOUNTER → 2022-03-02 | Outpatient (CLI) | payer MEDICARE ==
[~2022-03-02] MED LIST changes: -DULE200A IN; +MOME13HF7 IN
[2022-03-02 17:27] LABS: INR 2.23; PROTHROMBIN TIME 25.1 SECONDS (12.7-14.5)
== END ==
LOC: M WUC 13:44
PROVIDERS: ATTEND Internal Medicine Cardiovascular Disease
DX: I48.0 Paroxysmal atrial fibrillation (principal)

== ENCOUNTER → 2022-03-08 | Outpatient (CLI) | payer MEDICARE ==
[2022-03-08 17:38] LABS: INR 2.25; PROTHROMBIN TIME 25.3 SECONDS (12.7-14.5)
== END ==
LOC: M WUC 10:51
PROVIDERS: ATTEND Internal Medicine Cardiovascular Disease
DX: I48.0 Paroxysmal atrial fibrillation (principal)

== ENCOUNTER → 2022-03-22 | Outpatient (CLI) | payer MEDICARE ==
[2022-03-22 13:36] LABS: INR 1.87; PROTHROMBIN TIME 21.9 SECONDS (12.7-14.5)
== END ==
LOC: M WUC 10:58
PROVIDERS: ATTEND Internal Medicine Cardiovascular Disease
DX: I48.0 Paroxysmal atrial fibrillation (principal)

== ENCOUNTER → 2022-03-29 | Outpatient (CLI) | payer MEDICARE ==
[2022-03-29 18:23] LABS: ALBUMIN 3.6 GM/DL (3.2-5.2); ALT/SGPT 13 U/L (12-78); BILIRUBIN,TOTAL 0.6 MG/DL (0.2-1.0); BLOOD UREA NITROGEN 9 MG/DL (7-18); CALCIUM LEVEL 8.5 MG/DL (8.8-10.2); CARBON DIOXIDE LEVEL 30 MEQ/L (21-32); CHLORIDE LEVEL 104 MEQ/L (98-107); CREATININE FOR GFR 0.85 MG/DL (0.70-1.30); GLOMERULAR FILTRATION RATE > 60.0 (>42); GLUCOSE, FASTING 132 MG/DL (70-100); NT-PRO BNP 219 PG/ML (<125); POTASSIUM SERUM 3.9 MEQ/L (3.5-5.1); SODIUM LEVEL 139 MEQ/L (136-145); TOTAL PROTEIN 6.4 GM/DL (6.4-8.2)
== END ==
LOC: M WUC 14:22
PROVIDERS: ATTEND Physician Assistant
DX: I50.9 Heart failure, unspecified (principal)

== ENCOUNTER → 2022-03-29 | Outpatient (CLI) | payer MEDICARE ==
[2022-03-29 18:01] LABS: INR 3.26; PROTHROMBIN TIME 33.5 SECONDS (12.7-14.5)
== END ==
LOC: M WUC 14:18
PROVIDERS: ATTEND Internal Medicine Cardiovascular Disease
DX: Z79.01 Long term (current) use of anticoagulants (principal)

== ENCOUNTER → 2022-04-05 | Outpatient (CLI) | payer MEDICARE ==
[2022-04-05 17:14] LABS: HEMOGLOBIN A1c 6.5 %
[2022-04-05 17:39] LABS: MALB URINE SIEMENS 14.6 MG/L; MAU/CREAT RATIO 4.9 MCG/MG (0.0-30.0)
== END ==
LOC: M WUC 13:39
PROVIDERS: ATTEND Family Medicine
DX: E11.9 Type 2 diabetes mellitus without complications (principal)

== ENCOUNTER → 2022-04-05 | Outpatient (CLI) | payer MEDICARE ==
[2022-04-05 17:10] LABS: INR 2.27; PROTHROMBIN TIME 25.4 SECONDS (12.5-14.5)
== END ==
LOC: M WUC 13:42
PROVIDERS: ATTEND Internal Medicine Cardiovascular Disease
DX: I48.0 Paroxysmal atrial fibrillation (principal)

== ENCOUNTER → 2022-04-13 | Outpatient (REF) | payer MEDICARE ==
[2022-04-13 13:29] LABS: INR 2.69
== END ==
LOC: M LABWUC 12:31
PROVIDERS: ATTEND Internal Medicine Cardiovascular Disease
DX: I48.0 Paroxysmal atrial fibrillation (principal)

== ENCOUNTER → 2022-04-19 | Outpatient (CLI) | payer MEDICARE ==
[2022-04-19 17:59] LABS: INR 3.1; PROTHROMBIN TIME 32.4 SECONDS (12.5-14.5)
== END ==
LOC: M WUC 13:22
PROVIDERS: ATTEND Internal Medicine Cardiovascular Disease
DX: I48.0 Paroxysmal atrial fibrillation (principal)

== ENCOUNTER → 2022-04-26 | Outpatient (CLI) | payer MEDICARE ==
[2022-04-26 12:33] LABS: INR 2.64; PROTHROMBIN TIME 28.6 SECONDS (12.5-14.5)
== END ==
LOC: M WUC 09:34
PROVIDERS: ATTEND Internal Medicine Cardiovascular Disease
DX: I48.0 Paroxysmal atrial fibrillation (principal)

== ENCOUNTER → 2022-05-10 | Outpatient (CLI) | payer MEDICARE ==
[2022-05-10 19:06] LABS: INR 2.99; PROTHROMBIN TIME 31.5 SECONDS (12.5-14.5)
== END ==
LOC: M WUC 11:25
PROVIDERS: ATTEND Internal Medicine Cardiovascular Disease
DX: I48.0 Paroxysmal atrial fibrillation (principal)

== ENCOUNTER → 2022-05-24 | Outpatient (CLI) | payer MEDICARE ==
[2022-05-24 18:46] LABS: INR 1.68; PROTHROMBIN TIME 20.1 SECONDS (12.5-14.5)
== END ==
LOC: M WUC 10:56
PROVIDERS: ATTEND Internal Medicine Cardiovascular Disease
DX: I48.0 Paroxysmal atrial fibrillation (principal)

== ENCOUNTER → 2022-05-31 | Outpatient (REF) | payer MEDICARE ==
[2022-05-31 18:13] LABS: INR 1.8; PROTHROMBIN TIME 21.2 SECONDS (12.5-14.5)
== END ==
LOC: M LABWUC 16:18
PROVIDERS: ATTEND Internal Medicine Cardiovascular Disease
DX: I48.0 Paroxysmal atrial fibrillation (principal)

== ENCOUNTER → 2022-06-07 | Outpatient (REF) | payer MEDICARE ==
[2022-06-07 17:11] LABS: INR 2.81
== END ==
LOC: M LAB REF 16:25
PROVIDERS: ATTEND Internal Medicine Cardiovascular Disease
DX: I48.0 Paroxysmal atrial fibrillation (principal)

== ENCOUNTER → 2022-06-14 | Outpatient (CLI) | payer MEDICARE ==
[2022-06-14 17:23] LABS: INR 4.26; PROTHROMBIN TIME 41.6 SECONDS (12.5-14.5)
== END ==
LOC: M WUC 11:15
PROVIDERS: ATTEND Internal Medicine Cardiovascular Disease
DX: I48.0 Paroxysmal atrial fibrillation (principal)

== ENCOUNTER → 2022-06-21 | Outpatient (CLI) | payer MEDICARE ==
[2022-06-21 17:04] LABS: INR 2.1; PROTHROMBIN TIME 23.9 SECONDS (12.5-14.5)
== END ==
LOC: M WUC 14:02
PROVIDERS: ATTEND Internal Medicine Cardiovascular Disease
DX: I48.0 Paroxysmal atrial fibrillation (principal)

== ENCOUNTER → 2022-06-28 | Outpatient (CLI) | payer MEDICARE ==
[2022-06-28 13:16] LABS: INR 2.87; PROTHROMBIN TIME 30.5 SECONDS (12.5-14.5)
== END ==
LOC: M WUC 09:09
PROVIDERS: ATTEND Internal Medicine Cardiovascular Disease
DX: I48.0 Paroxysmal atrial fibrillation (principal)

== ENCOUNTER → 2022-07-05 | Outpatient (CLI) | payer MEDICARE ==
[2022-07-05 13:19] LABS: INR 3.02; PROTHROMBIN TIME 31.8 SECONDS (12.5-14.5)
== END ==
LOC: M WUC 10:51
PROVIDERS: ATTEND Internal Medicine Cardiovascular Disease
DX: I48.0 Paroxysmal atrial fibrillation (principal)

== ENCOUNTER → 2022-07-12 | Outpatient (CLI) | payer MEDICARE ==
[2022-07-12 13:23] LABS: INR 2.28; PROTHROMBIN TIME 25.5 SECONDS (12.5-14.5)
== END ==
LOC: M WUC 10:34
PROVIDERS: ATTEND Internal Medicine Cardiovascular Disease
DX: I48.0 Paroxysmal atrial fibrillation (principal)

== ENCOUNTER → 2022-08-19 | Outpatient (CLI) | payer MEDICARE ==
[2022-08-19 16:48] LABS: BASO % 0.7 % (0.0-1.0); EOS # 0.1 10^3/uL (0.0-0.5); EOS % 1.8 % (0.0-3.0); HEMATOCRIT 40.8 % (42.0-52.0); HEMOGLOBIN 12.5 g/dl (13.5-17.5); LYMPH # 1.6 10^3/uL (1.5-5.0); LYMPH % 26.4 % (24.0-44.0); MEAN CORPUSCULAR HEMOGLOBIN 30.1 pg (27.0-33.0); MEAN CORPUSCULAR HGB CONC 30.6 g/dl (32.0-36.5); MEAN CORPUSCULAR VOLUME 98.3 fl (80.0-96.0); MONO # 0.6 10^3/uL (0.0-0.8); MONO % 10.3 % (2.0-8.0); NEUTROPHILS # 3.7 10^3/uL (1.5-8.5); NEUTROPHILS % 60.3 % (36.0-66.0); PLATELET COUNT, AUTOMATED 151 10^3/uL (150-450); RED BLOOD COUNT 4.15 10^6/uL (4.30-6.10); WHITE BLOOD COUNT 6.1 10^3/uL (4.0-10.0)
== END ==
LOC: M WUC 11:26
PROVIDERS: ATTEND Psychiatry & Neurology Neurology
DX: G70.00 Myasthenia gravis without (acute) exacerbation (principal)

== ENCOUNTER → 2022-08-30 | Outpatient (CLI) | payer MEDICARE ==
[~2022-08-30] MED LIST changes: -DULE100A IN; +MOME13HF8 IN
[2022-08-30 13:22] LABS: HEMATOCRIT 40.9 % (42.0-52.0); HEMOGLOBIN 12.7 g/dl (13.5-17.5); MEAN CORPUSCULAR HEMOGLOBIN 30.2 pg (27.0-33.0); MEAN CORPUSCULAR HGB CONC 31.1 g/dl (32.0-36.5); MEAN CORPUSCULAR VOLUME 97.4 fl (80.0-96.0); PLATELET COUNT, AUTOMATED 140 10^3/uL (150-450); WHITE BLOOD COUNT 5.1 10^3/uL (4.0-10.0)
[2022-08-30 13:56] LABS: BLOOD UREA NITROGEN 12 MG/DL (9-23); CALCIUM LEVEL 8.6 MG/DL (8.3-10.6); CARBON DIOXIDE LEVEL 32 MMOL/L (20-31); CHLORIDE LEVEL 101 MMOL/L (98-107); CREATININE FOR GFR 0.84 MG/DL (0.70-1.30); GLOMERULAR FILTRATION RATE > 60.0 (>42); GLUCOSE, FASTING 147 MG/DL (74-106); POTASSIUM SERUM 4.1 MMOL/L (3.5-5.1); SODIUM LEVEL 137 MMOL/L (136-145)
== END ==
LOC: M WUC 10:24
PROVIDERS: ATTEND Physician Assistant
DX: I48.92 Unspecified atrial flutter (principal); I50.32 Chronic diastolic (congestive) heart failure

== ENCOUNTER 2022-09-16 18:29 | Inpatient (IN) | payer MEDICARE ==
[~2022-09-16] VITALS: Ht 170.2 cm; Wt 105.5 kg
[2022-09-16] MEDS ORDERED: IPRATROPIUM 0.5MG/ALBUTEROL 2.5MG INH SOL UD 3ML (DUONEB) NEB ONE (18:55)
[2022-09-16] MEDS ORDERED: ALBUTEROL SULFATE 2.5MG/0.5ML INH NEB SOLN NEB ONE (18:55)
[2022-09-16] MEDS ORDERED: methylPREDNISolone 125MG 2ML VIAL IV ONE (19:00)
[2022-09-16 19:28] LABS: BASO % 0.9 % (0.0-1.0); EOS # 0.1 10^3/uL (0.0-0.5); EOS % 2.3 % (0.0-3.0); HEMATOCRIT 44.4 % (42.0-52.0); HEMOGLOBIN 14.2 g/dl (13.5-17.5); LYMPH # 0.5 10^3/uL (1.5-5.0); LYMPH % 10.9 % (24.0-44.0); MEAN CORPUSCULAR HEMOGLOBIN 30.9 pg (27.0-33.0); MEAN CORPUSCULAR VOLUME 96.5 fl (80.0-96.0); MONO # 0.5 10^3/uL (0.0-0.8); MONO % 11.3 % (2.0-8.0); NEUTROPHILS # 3.3 10^3/uL (1.5-8.5); NEUTROPHILS % 74.1 % (36.0-66.0); WHITE BLOOD COUNT 4.4 10^3/uL (4.0-10.0)
[2022-09-16 19:40] LABS: PLATELET COUNT, AUTOMATED 82 10^3/uL (150-450)
[2022-09-16 19:57] LABS: ALBUMIN 3.8 G/DL (3.2-5.2); ALKALINE PHOSPHATASE 77 U/L (46-116); ALT/SGPT 27 U/L (7.0-40); AST/SGOT 16 U/L (<34); BILIRUBIN,DIRECT 0.4 MG/DL (<0.4); BILIRUBIN,TOTAL 0.9 MG/DL (0.3-1.2); BLOOD UREA NITROGEN 16 MG/DL (9-23); CALCIUM LEVEL 8.4 MG/DL (8.3-10.6); CARBON DIOXIDE LEVEL 32 MMOL/L (20-31); CHLORIDE LEVEL 98 MMOL/L (98-107); GLOMERULAR FILTRATION RATE > 60.0 (>42); GLUCOSE, FASTING 138 MG/DL (74-106); POTASSIUM SERUM 4.1 MMOL/L (3.5-5.1); SODIUM LEVEL 136 MMOL/L (136-145); THYROID STIMULATING HORMONE 1.122 uIU/ML (0.55-4.78); THYROXINE (T4) 7.2 UG/DL (4.5-10.9); TOTAL PROTEIN 6.4 G/DL (5.7-8.2)
[2022-09-16] MEDS ORDERED: ISOVUE-370 76% 100ML VIAL As Ordered ONE (20:14)
[2022-09-16] MEDS ORDERED: AZITHROMYCIN 250MG TABLET PO ONE (20:45)
[2022-09-16] MEDS ORDERED: cefTRIAXone SOD 1 GM in D5W MINI-BAG PLUS 50 ML IV ONE (20:45)
[2022-09-16] MEDS ORDERED: ACETAMINOPHEN 325 MG TAB PO ONE (20:55)
[2022-09-16] MEDS: INSULIN LISPRO (NovoLOG) PER UNIT SC SCH (21:00)
[2022-09-16] MEDS ORDERED: ELIQ5TAB PO (21:34)
[2022-09-16] MEDS ORDERED: MYCO500T PO (21:34)
[2022-09-16] MEDS ORDERED: HOME MED LIST COMPLETE! XX SCH (21:35)
[2022-09-16] MEDS ORDERED: ALBU8.5H INH (21:35)
[2022-09-16] MEDS ORDERED: GLUCOSE 4GM CHEW TABLET PO PRN (22:00)
[2022-09-16] MEDS ORDERED: DEXTROSE 50% 50ML SYRINGE IV PRN (22:00)
[2022-09-16] MEDS ORDERED: GLUCAGON INJ 1MG VIAL SC PRN (22:00)
[2022-09-16] MEDS ORDERED: ALBUTEROL SULFATE 2.5MG/0.5ML INH NEB SOLN NEB PRN (22:00)
[2022-09-16] MEDS ORDERED: ACETAMINOPHEN TAB 650MG DOSE (2X325MG) PO PRN (22:00)
[2022-09-17] MEDS: IPRATROPIUM 0.5MG/ALBUTEROL 2.5MG INH SOL UD 3ML (DUONEB) NEB SCH ×4 (01:00→19:29)
[2022-09-17 01:21] VITALS: BP 152/72
[2022-09-17 02:18] VITALS: BP 124/76
[2022-09-17] MEDS ORDERED: CEPACOL LOZENGE PO PRN (04:00)
[2022-09-17 05:43] VITALS: BP 138/80
[2022-09-17 06:25] LABS: BLOOD UREA NITROGEN 13 MG/DL (9-23); CALCIUM LEVEL 8.2 MG/DL (8.3-10.6); CARBON DIOXIDE LEVEL 29 MMOL/L (20-31); CHLORIDE LEVEL 100 MMOL/L (98-107); GLOMERULAR FILTRATION RATE > 60.0 (>42); GLUCOSE, FASTING 205 MG/DL (74-106); POTASSIUM SERUM 4.2 MMOL/L (3.5-5.1); SODIUM LEVEL 136 MMOL/L (136-145)
[2022-09-17] MEDS: TIOTROPIUM INHALER/CAPSULE (SPIRIVA) INH SCH (08:14)
[2022-09-17] MEDS: MYCOPHENOLATE MOFETIL 250 MG CAP (J7517) PO SCH ×2 (08:21→20:44)
[2022-09-17] MEDS: ROSUVASTATIN 10 MG TAB (CRESTOR) PO SCH (08:24)
[2022-09-17] MEDS: PANTOPRAZOLE 40MG TAB (PROTONIX) PO SCH (08:24)
[2022-09-17] MEDS: DOXYCYCLINE HYCLATE 100MG TABLET PO SCH ×2 (08:24→20:43)
[2022-09-17] MEDS: predniSONE 20 MG TAB PO SCH ×2 (08:24→20:43)
[2022-09-17] MEDS: APIXABAN 5 MG TAB (ELIQUIS) PO SCH ×2 (08:24→20:43)
[2022-09-17] MEDS: INSULIN LISPRO (NovoLOG) PER UNIT SC SCH ×4 (08:24→20:50)
[2022-09-17] MEDS: SOTALOL HCL 80 MG TAB PO SCH ×2 (08:29→20:43)
[2022-09-17] MEDS ORDERED: DOXY100T PO (09:43)
[2022-09-17] MEDS ORDERED: CEFD300C41 PO (09:43)
[2022-09-17 14:00] VITALS: BP 122/70
[2022-09-17] MEDS ORDERED: BENZONATATE 100MG CAPSULE PO PRN (15:25)
[2022-09-17 20:00] VITALS: BP 128/62
[2022-09-17] MEDS ORDERED: cefTRIAXone SOD 1 GM in D5W MINI-BAG PLUS 50 ML IV SCH (21:00)
[2022-09-18] MEDS: IPRATROPIUM 0.5MG/ALBUTEROL 2.5MG INH SOL UD 3ML (DUONEB) NEB SCH ×2 (02:35→07:34)
[2022-09-18 06:00] VITALS: BP 126/68
[2022-09-18 07:14] LABS: HEMATOCRIT 39.7 % (42.0-52.0); HEMOGLOBIN 12.6 g/dl (13.5-17.5); MEAN CORPUSCULAR HEMOGLOBIN 30.7 pg (27.0-33.0); MEAN CORPUSCULAR HGB CONC 31.7 g/dl (32.0-36.5); MEAN CORPUSCULAR VOLUME 96.6 fl (80.0-96.0); PLATELET COUNT, AUTOMATED 101 10^3/uL (150-450); RED BLOOD COUNT 4.11 10^6/uL (4.30-6.10); WHITE BLOOD COUNT 8.2 10^3/uL (4.0-10.0)
[2022-09-18] MEDS: TIOTROPIUM INHALER/CAPSULE (SPIRIVA) INH SCH (07:34)
[2022-09-18 07:40] LABS: BLOOD UREA NITROGEN 21 MG/DL (9-23); CALCIUM LEVEL 8.1 MG/DL (8.3-10.6); CARBON DIOXIDE LEVEL 30 MMOL/L (20-31); CHLORIDE LEVEL 103 MMOL/L (98-107); CREATININE FOR GFR 0.82 MG/DL (0.70-1.30); GLOMERULAR FILTRATION RATE > 60.0 (>42); GLUCOSE, FASTING 159 MG/DL (74-106); MAGNESIUM LEVEL 2.1 MG/DL (1.8-2.4); PHOSPHORUS LEVEL 4.3 MG/DL (2.4-5.1); POTASSIUM SERUM 4.6 MMOL/L (3.5-5.1); SODIUM LEVEL 139 MMOL/L (136-145)
[2022-09-18] MEDS ORDERED: PRED10TA2 PO (08:23)
[2022-09-18] MEDS ORDERED: ALBU8.5H INH (08:23)
[2022-09-18 08:25] VITALS: BP 146/80
[2022-09-18] MEDS: SOTALOL HCL 80 MG TAB PO SCH (08:25)
[2022-09-18] MEDS: DOXYCYCLINE HYCLATE 100MG TABLET PO SCH (08:25)
[2022-09-18] MEDS: PANTOPRAZOLE 40MG TAB (PROTONIX) PO SCH (08:26)
[2022-09-18] MEDS: MYCOPHENOLATE MOFETIL 250 MG CAP (J7517) PO SCH (08:26)
[2022-09-18] MEDS: predniSONE 20 MG TAB PO SCH (08:26)
[2022-09-18] MEDS: APIXABAN 5 MG TAB (ELIQUIS) PO SCH (08:26)
[2022-09-18] MEDS: ROSUVASTATIN 10 MG TAB (CRESTOR) PO SCH (08:26)
[2022-09-18] MEDS: INSULIN LISPRO (NovoLOG) PER UNIT SC SCH (08:27)
== END 2022-09-18 11:51 | disposition home or self-care (01) | DRG 871 ==
LOC: M ED 18:29 → M ED INP 21:57 → ENRESERV 23:30 → M MSPAV 09-17 01:23
PROVIDERS: ADMIT Internal Medicine; ATTEND Internal Medicine
DX: A41.9 Sepsis, unspecified organism (principal); J12.3 Human metapneumovirus pneumonia; J45.901 Unspecified asthma with (acute) exacerbation; I48.91 Unspecified atrial fibrillation; E78.00 Pure hypercholesterolemia, unspecified; G70.00 Myasthenia gravis without (acute) exacerbation; E11.9 Type 2 diabetes mellitus without complications; Z66 Do not resuscitate; Z96.642 Presence of left artificial hip joint; Z79.01 Long term (current) use of anticoagulants; Z79.899 Other long term (current) drug therapy; Z77.29 Contact with and (suspected) exposure to other hazardous substances

== ENCOUNTER → 2022-10-03 | Outpatient (CLI) | payer MEDICARE ==
[~2022-10-03] MED LIST changes: +ALBU8.5H INH; +CEFD300C41 PO; +DOXY100T PO; +MYCO500T PO; +PRED10TA2 PO
== END ==
LOC: M WUC 11:39
PROVIDERS: ATTEND Internal Medicine Pulmonary Disease
DX: J68.4 Chronic respiratory conditions due to chemicals, gases, fumes and vapors (principal)

== ENCOUNTER → 2022-10-03 | Outpatient (CLI) | payer MEDICARE ==
[2022-10-03 17:26] LABS: ALBUMIN 3.5 G/DL (3.2-5.2); ALKALINE PHOSPHATASE 71 U/L (46-116); ALT/SGPT 29 U/L (7.0-40); AST/SGOT 8 U/L (<34); BILIRUBIN,TOTAL 0.7 MG/DL (0.3-1.2); BLOOD UREA NITROGEN 13 MG/DL (9-23); CALCIUM LEVEL 8.6 MG/DL (8.3-10.6); CARBON DIOXIDE LEVEL 34 MMOL/L (20-31); CHLORIDE LEVEL 103 MMOL/L (98-107); CHOLESTEROL LEVEL 141 MG/DL (<200); CHOLESTEROL RISK RATIO 2.35 (<5); GLOMERULAR FILTRATION RATE > 60.0 (>42); GLUCOSE, FASTING 121 MG/DL (74-106); HDL CHOLESTEROL 59.9 MG/DL (>40); LDL CHOLESTEROL 53.1 MG/DL (<100); NON-HDL-C 81.1 MG/DL; POTASSIUM SERUM 4.4 MMOL/L (3.5-5.1); SODIUM LEVEL 140 MMOL/L (136-145); TOTAL PROTEIN 5.9 G/DL (5.7-8.2); TRIGLYCERIDES LEVEL 140 MG/DL (<150)
[2022-10-03 17:35] LABS: HEMATOCRIT 43.4 % (42.0-52.0); HEMOGLOBIN 13.4 g/dl (13.5-17.5); MEAN CORPUSCULAR HEMOGLOBIN 30.7 pg (27.0-33.0); MEAN CORPUSCULAR HGB CONC 30.9 g/dl (32.0-36.5); MEAN CORPUSCULAR VOLUME 99.3 fl (80.0-96.0); PLATELET COUNT, AUTOMATED 123 10^3/uL (150-450); RED BLOOD COUNT 4.37 10^6/uL (4.30-6.10)
[2022-10-05 08:09] LABS: LDL DIRECT 69 mg/dL (0-99)
== END ==
LOC: M WUC 11:36
PROVIDERS: ATTEND Internal Medicine Cardiovascular Disease
DX: I50.30 Unspecified diastolic (congestive) heart failure (principal); I11.0 Hypertensive heart disease with heart failure; E78.2 Mixed hyperlipidemia; I48.0 Paroxysmal atrial fibrillation

== ENCOUNTER → 2023-02-16 | Outpatient (CLI) | payer MEDICARE ==
[~2023-02-16] MED LIST changes: +DILT180C38 PO; -DILT1CAP3 PO; -ROSU20TA5 PO; +ROSU20TA61 PO
[2023-02-16 16:44] LABS: BASO # 0.1 10^3/uL (0.0-0.2); BASO % 0.8 % (0.0-1.0); EOS # 0.2 10^3/uL (0.0-0.5); EOS % 2.5 % (0.0-3.0); HEMATOCRIT 43.7 % (42.0-52.0); HEMOGLOBIN 13.7 g/dl (13.5-17.5); LYMPH # 1.6 10^3/uL (1.5-5.0); LYMPH % 23.9 % (24.0-44.0); MEAN CORPUSCULAR HEMOGLOBIN 31.2 pg (27.0-33.0); MEAN CORPUSCULAR HGB CONC 31.4 g/dl (32.0-36.5); MEAN CORPUSCULAR VOLUME 99.5 fl (80.0-96.0); MONO # 0.6 10^3/uL (0.0-0.8); MONO % 8.9 % (2.0-8.0); NEUTROPHILS # 4.1 10^3/uL (1.5-8.5); NEUTROPHILS % 63.4 % (36.0-66.0); PLATELET COUNT, AUTOMATED 127 10^3/uL (150-450); RED BLOOD COUNT 4.39 10^6/uL (4.30-6.10); WHITE BLOOD COUNT 6.5 10^3/uL (4.0-10.0)
== END ==
LOC: M WUC 12:30
PROVIDERS: ATTEND Psychiatry & Neurology Neurology
DX: G70.00 Myasthenia gravis without (acute) exacerbation (principal)

== ENCOUNTER → 2023-05-23 | Outpatient (CLI) | payer MEDICARE ==
[~2023-05-23] MED LIST changes: -CEFD300C41 PO; +CEFD300C42 PO
== END ==
LOC: M WUC 11:22
PROVIDERS: ATTEND Family Medicine
DX: J18.9 Pneumonia, unspecified organism (principal)

== ENCOUNTER → 2023-06-06 | Outpatient (CLI) | payer MEDICARE ==
[~2023-06-06] MED LIST changes: +CEFD1CAP9 PO; -CEFD300C42 PO
== END ==
LOC: M WUC 10:37
PROVIDERS: ATTEND Family Medicine
DX: J18.9 Pneumonia, unspecified organism (principal)

== ENCOUNTER → 2023-06-27 | Outpatient (CLI) | payer MEDICARE | LOC: M WUC 15:29 | PROVIDERS: ATTEND Family Medicine | DX: J18.9 Pneumonia, unspecified organism (principal) ==

== ENCOUNTER → 2023-08-01 | Outpatient (CLI) | payer MEDICARE ==
[~2023-08-01] MED LIST changes: -HYDR-3911 PO; +HYDR50TA46 PO
[2023-08-01 15:28] LABS: BASO # 0.1 10^3/uL (0.0-0.2); BASO % 0.7 % (0.0-1.0); EOS # 0.1 10^3/uL (0.0-0.5); EOS % 1.6 % (0.0-3.0); HEMATOCRIT 46.9 % (42.0-52.0); HEMOGLOBIN 14.9 g/dl (13.5-17.5); LYMPH # 1.6 10^3/uL (1.5-5.0); LYMPH % 19.1 % (24.0-44.0); MEAN CORPUSCULAR HEMOGLOBIN 32.5 pg (27.0-33.0); MEAN CORPUSCULAR HGB CONC 31.8 g/dl (32.0-36.5); MEAN CORPUSCULAR VOLUME 102.2 fl (80.0-96.0); MONO # 0.9 10^3/uL (0.0-0.8); MONO % 10.7 % (2.0-8.0); NEUTROPHILS # 5.5 10^3/uL (1.5-8.5); NEUTROPHILS % 67.5 % (36.0-66.0); PLATELET COUNT, AUTOMATED 128 10^3/uL (150-450); RED BLOOD COUNT 4.59 10^6/uL (4.30-6.10); WHITE BLOOD COUNT 8.1 10^3/uL (4.0-10.0)
[2023-08-01 16:00] LABS: ALBUMIN 3.6 G/DL (3.2-5.2); ALKALINE PHOSPHATASE 81 U/L (46-116); ALT/SGPT 10 U/L (7.0-40); AST/SGOT < 8 U/L (<34); BILIRUBIN,TOTAL 0.7 MG/DL (0.3-1.2); BLOOD UREA NITROGEN 14 MG/DL (9-23); CALCIUM LEVEL 8.5 MG/DL (8.3-10.6); CARBON DIOXIDE LEVEL 34 MMOL/L (20-31); CHLORIDE LEVEL 103 MMOL/L (98-107); CREATININE FOR GFR 0.82 MG/DL (0.70-1.30); GLOMERULAR FILTRATION RATE > 60.0 (>42); GLUCOSE, FASTING 112 MG/DL (74-106); MAGNESIUM LEVEL 2.1 MG/DL (1.8-2.4); POTASSIUM SERUM 4.3 MMOL/L (3.5-5.1); SODIUM LEVEL 140 MMOL/L (136-145); TOTAL PROTEIN 6.4 G/DL (5.7-8.2)
[2023-08-01 16:01] LABS: THYROID STIMULATING HORMONE 1.506 uIU/ML (0.55-4.78)
[2023-08-01 16:09] LABS: CHOLESTEROL RISK RATIO 2.87 (<5); HDL CHOLESTEROL 44.1 MG/DL (>40); LDL CHOLESTEROL 59.9 MG/DL (<100); NON-HDL-C 82.9 MG/DL
[2023-08-01 19:59] LABS: HEMOGLOBIN A1c 6.3 % (4.0-6.0)
== END ==
LOC: M WUC 10:31
PROVIDERS: ATTEND Registered Nurse
DX: E78.2 Mixed hyperlipidemia (principal); I50.32 Chronic diastolic (congestive) heart failure; I48.91 Unspecified atrial fibrillation; Z13.29 Encounter for screening for other suspected endocrine disorder; R73.09 Other abnormal glucose; R06.02 Shortness of breath

== ENCOUNTER → 2023-10-24 | Outpatient (CLI) | payer MEDICARE ==
[2023-10-24 17:09] LABS: ALBUMIN 3.5 G/DL (3.2-5.2); ALKALINE PHOSPHATASE 76 U/L (46-116); ALT/SGPT 12 U/L (7.0-40); AST/SGOT < 8 U/L (<34); BILIRUBIN,TOTAL 0.8 MG/DL (0.3-1.2); BLOOD UREA NITROGEN 15 MG/DL (9-23); CALCIUM LEVEL 8.4 MG/DL (8.3-10.6); CARBON DIOXIDE LEVEL 32 MMOL/L (20-31); CHLORIDE LEVEL 103 MMOL/L (98-107); CHOLESTEROL LEVEL 136 MG/DL (<200); CHOLESTEROL RISK RATIO 2.28 (<5); CREATININE FOR GFR 0.87 MG/DL (0.70-1.30); GLOMERULAR FILTRATION RATE > 60.0 (>42); GLUCOSE, FASTING 108 MG/DL (74-106); HDL CHOLESTEROL 59.4 MG/DL (>40); LDL CHOLESTEROL 51.4 MG/DL (<100); MAGNESIUM LEVEL 2.1 MG/DL (1.8-2.4); NON-HDL-C 76.6 MG/DL; POTASSIUM SERUM 4.4 MMOL/L (3.5-5.1); SODIUM LEVEL 140 MMOL/L (136-145); TOTAL PROTEIN 6.2 G/DL (5.7-8.2); TRIGLYCERIDES LEVEL 126 MG/DL (<150)
== END ==
LOC: M WUC 10:06
PROVIDERS: ATTEND Internal Medicine Cardiovascular Disease
DX: E78.2 Mixed hyperlipidemia (principal); G47.33 Obstructive sleep apnea (adult) (pediatric); R06.02 Shortness of breath; E78.00 Pure hypercholesterolemia, unspecified

== ENCOUNTER → 2023-11-07 | Outpatient (CLI) | payer MEDICARE | LOC: M WUC 10:16 | PROVIDERS: ATTEND Internal Medicine Pulmonary Disease | DX: J68.4 Chronic respiratory conditions due to chemicals, gases, fumes and vapors (principal) ==

== ENCOUNTER → 2024-03-19 | Outpatient (REF) | payer MEDICARE | LOC: M SFHCLERA 16:35 | PROVIDERS: ATTEND Family Medicine | DX: R05.9 Cough, unspecified (principal) ==

== ENCOUNTER → 2024-04-29 | Outpatient (REF) | payer MEDICARE ==
[~2024-04-29] MED LIST changes: -ROSU20TA61 PO; +ROSU20TA86 PO
== END ==
LOC: M SFHCLERA 16:28
PROVIDERS: ATTEND Family Medicine
DX: R05.9 Cough, unspecified (principal)

== ENCOUNTER 2024-06-03 06:40 | Day surgery (SDC) | payer MEDICARE ==
[~2024-06-03] VITALS: Ht 170.2 cm; Wt 103.9 kg
[~2024-06-03 06:40] MED LIST changes: +FURO40TA2 PO; +HYDR25TA87 PO
[2024-06-03] MEDS ORDERED: SIMETHICONE 40MG/0.6ML DROPS 30ML As Ordered ONE (07:00)
[2024-06-03] MEDS ORDERED: LIDOCAINE 2% 100MG/5ML SDV (FOR ANES.) As Ordered ONE (07:15)
[2024-06-03] MEDS ORDERED: AMOX500T PO (07:20)
[2024-06-03] MEDS ORDERED: propofoL 200 MG/20 ML VIAL As Ordered ONE (07:48)
[2024-06-03 08:01] VITALS: TEMP 97.9
[2024-06-03 08:20] VITALS: BP 138/75; O2SAT 94
== END 2024-06-03 09:34 | disposition home or self-care (01) ==
LOC: M OPP 06:40
PROVIDERS: ATTEND Internal Medicine Gastroenterology
DX: Z12.11 Encounter for screening for malignant neoplasm of colon (principal); Z12.12 Encounter for screening for malignant neoplasm of rectum; D12.0 Benign neoplasm of cecum; K57.30 Diverticulosis of large intestine without perforation or abscess without bleeding; K64.8 Other hemorrhoids; I48.91 Unspecified atrial fibrillation; I10 Essential (primary) hypertension; J44.9 Chronic obstructive pulmonary disease, unspecified; G70.00 Myasthenia gravis without (acute) exacerbation; E78.00 Pure hypercholesterolemia, unspecified; G47.30 Sleep apnea, unspecified; Z79.899 Other long term (current) drug therapy

== ENCOUNTER → 2024-06-20 | Outpatient (CLI) | payer MEDICARE ==
[~2024-06-20] MED LIST changes: +AMOX500T PO
[2024-06-20 16:32] LABS: ALBUMIN 3.7 G/DL (3.2-5.2); ALKALINE PHOSPHATASE 78 U/L (40-129); ALT/SGPT 13 U/L (7.0-40); AST/SGOT 8 U/L (<34); BILIRUBIN,TOTAL 0.7 MG/DL (0.3-1.2); BLOOD UREA NITROGEN 13 MG/DL (9-23); CALCIUM LEVEL 9.1 MG/DL (8.3-10.6); CARBON DIOXIDE LEVEL 32 MMOL/L (20-31); CHLORIDE LEVEL 101 MMOL/L (98-107); CHOLESTEROL LEVEL 143 MG/DL (<200); CHOLESTEROL RISK RATIO 2.43 (<5); CREATININE FOR GFR 0.79 MG/DL (0.70-1.30); GLOMERULAR FILTRATION RATE > 60.0 (>42); GLUCOSE, FASTING 144 MG/DL (74-106); HDL CHOLESTEROL 58.8 MG/DL (>40); LDL CHOLESTEROL 59.6 MG/DL (<100); NON-HDL-C 84.2 MG/DL; POTASSIUM SERUM 4.2 MMOL/L (3.5-5.1); SODIUM LEVEL 139 MMOL/L (136-145); TOTAL PROTEIN 6.8 G/DL (5.7-8.2); TRIGLYCERIDES LEVEL 123 MG/DL (<150)
[2024-06-20 17:00] LABS: BASO # 0.1 10^3/uL (0.0-0.2); BASO % 0.8 % (0.0-1.0); EOS # 0.1 10^3/uL (0.0-0.5); EOS % 1.8 % (0.0-3.0); HEMATOCRIT 45.7 % (42.0-52.0); HEMOGLOBIN 14.3 g/dl (13.5-17.5); LYMPH # 1.5 10^3/uL (1.5-5.0); LYMPH % 23.3 % (24.0-44.0); MEAN CORPUSCULAR HEMOGLOBIN 32.4 pg (27.0-33.0); MEAN CORPUSCULAR HGB CONC 31.3 g/dl (32.0-36.5); MEAN CORPUSCULAR VOLUME 103.4 fl (80.0-96.0); MONO # 0.6 10^3/uL (0.0-0.8); NEUTROPHILS # 4.1 10^3/uL (1.5-8.5); NEUTROPHILS % 64.9 % (36.0-66.0); PLATELET COUNT, AUTOMATED 123 10^3/uL (150-450); RED BLOOD COUNT 4.42 10^6/uL (4.30-6.10); WHITE BLOOD COUNT 6.2 10^3/uL (4.0-10.0)
[2024-06-20 17:17] LABS: HEMOGLOBIN A1c 5.9 % (4.0-6.0)
[2024-06-22 05:58] LABS: LDL DIRECT 67 mg/dL (<100)
[2024-06-23 22:28] LABS: NT PRO BNP SO 595 pg/mL (<125)
== END ==
LOC: M WUC 11:37
PROVIDERS: ATTEND Internal Medicine Cardiovascular Disease
DX: I48.92 Unspecified atrial flutter (principal); I48.0 Paroxysmal atrial fibrillation; I50.32 Chronic diastolic (congestive) heart failure; E78.2 Mixed hyperlipidemia; I11.0 Hypertensive heart disease with heart failure

== ENCOUNTER → 2024-07-15 | Outpatient (CLI) | payer MEDICARE ==
[2024-07-15 18:00] LABS: ALBUMIN 3.7 G/DL (3.2-5.2); ALKALINE PHOSPHATASE 85 U/L (40-129); ALT/SGPT 17 U/L (7.0-40); AST/SGOT 8 U/L (<34); BILIRUBIN,TOTAL 0.6 MG/DL (0.3-1.2); BLOOD UREA NITROGEN 11 MG/DL (9-23); CALCIUM LEVEL 8.7 MG/DL (8.3-10.6); CARBON DIOXIDE LEVEL 30 MMOL/L (20-31); CHLORIDE LEVEL 101 MMOL/L (98-107); CHOLESTEROL LEVEL 137 MG/DL (<200); CHOLESTEROL RISK RATIO 2.31 (<5); CREATININE FOR GFR 0.93 MG/DL (0.70-1.30); GLOMERULAR FILTRATION RATE > 60.0 (>42); GLUCOSE, FASTING 108 MG/DL (74-106); HDL CHOLESTEROL 59.1 MG/DL (>40); LDL CHOLESTEROL 40.7 MG/DL (<100); MAGNESIUM LEVEL 2.4 MG/DL (1.8-2.4); NON-HDL-C 77.9 MG/DL; POTASSIUM SERUM 4.2 MMOL/L (3.5-5.1); SODIUM LEVEL 140 MMOL/L (136-145); TOTAL PROTEIN 6.7 G/DL (5.7-8.2); TRIGLYCERIDES LEVEL 186 MG/DL (<150)
== END ==
LOC: M WUC 13:16
PROVIDERS: ATTEND Internal Medicine Cardiovascular Disease
DX: I50.30 Unspecified diastolic (congestive) heart failure (principal); E78.2 Mixed hyperlipidemia; I48.91 Unspecified atrial fibrillation

== ENCOUNTER → 2024-08-05 | Outpatient (REF) | payer MEDICARE ==
[2024-08-05 17:16] LABS: BLOOD UREA NITROGEN 13 MG/DL (9-23); CALCIUM LEVEL 8.5 MG/DL (8.3-10.6); CARBON DIOXIDE LEVEL 34 MMOL/L (20-31); CHLORIDE LEVEL 100 MMOL/L (98-107); CREATININE FOR GFR 0.79 MG/DL (0.70-1.30); GLOMERULAR FILTRATION RATE > 60.0 (>42); GLUCOSE, FASTING 120 MG/DL (74-106); MAGNESIUM LEVEL 2.2 MG/DL (1.8-2.4); POTASSIUM SERUM 4.4 MMOL/L (3.5-5.1); SODIUM LEVEL 139 MMOL/L (136-145)
== END ==
LOC: M LABWUC 16:21
PROVIDERS: ATTEND Internal Medicine Cardiovascular Disease
DX: I48.91 Unspecified atrial fibrillation (principal); I50.9 Heart failure, unspecified

== ENCOUNTER → 2024-11-07 | Outpatient (CLI) | payer MEDICARE ==
[~2024-11-07] MED LIST changes: +LIDO1ADH93 TOP; -LIDO5DIS41 TOP
== END ==
LOC: M WUC 08:29
PROVIDERS: ATTEND Internal Medicine Pulmonary Disease
DX: J68.4 Chronic respiratory conditions due to chemicals, gases, fumes and vapors (principal)